=== PATIENT | female | born 1960 | race Caucasian/White ===

== ENCOUNTER 2025-01-19 00:54 | Emergency (ER) | payer MEDICARE, MEDICAID, SELFPAY ==
--- OUTSIDE RECORDS SUMMARY | 2012-07-22 12:00 | XMS_ITS | Encounter Summary ---
Author Organization [facility] Address [address], [address] [place] [address] Care Team Providers Care Card Brusher Name Role Phone Unavailable Primary Care Provider Unavailabl e Encounter Details Date Type Department Care Team (Late st Contact Info) Description 07/22/2012 11:00 AM EST Hospital Encounter [facility] Social History Tobacco Use Types Packs/Day Years Used Date Smoking Tobacco: Never Assessed Comments Unknown Sex and Gender Information Value Date Recorded Sex Assigned at Not on file Legal Sex Female 1:34 AM EST Gender Identity Not on file Sexual Orientation Not on file documented as of this encounter Plan of Treatment Not on file documented as of this encounter Visit Diagnoses Not on filedocumented in this encounter
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
[2025-01-19 00:58] VITALS: BP 169/77; PULSE 100; TEMP 36.6; O2SAT 98; BMI 25.0
--- OUTSIDE RECORDS SUMMARY | 2025-01-19 01:08 | XMS_ITS | Encounter Summary ---
Author Organization [facility] Address [address] [place] [address] Care Team Providers Care Power Wheelchair Mechanic Name Role Phone Yousif Pichardo Unavailable [phone] Malini Lemon NP Unavailable [phone] Mary Briseno PA-C Primary Care Provider [phone] Dolores Augustin MD Unavailable Ana Paula Jha APRN Unavailable [phone] Randall Stearns MD Unavailable Unavail able Cleopatra Maldonado RN Unavailable [phone] Veena Duron Unavailable Unavailable Kal Kaur MD Unavailable [phone] Source Comments In the event this information is protected by the Federal Confidentiality of Alcohol and Drug AbusePatient Records regulations: The Federal rules restrict any use of the information to criminally investigate or prosecute any alcohol or drug abuse patient.[facility] Encounter Details Date Type Department Care Team (Late st Contact Info) Description 06/24/2024 Patient Update Breast Center [address] [place] [id number] [place] [address] [place] [address] Social History Tobacco Use Types Packs/Day Years Used Date Smoking Tobacco: Every Day Cigarettes 1 25 Passive Smoke Exposure: Current Smokeless Tobacco: Never Alcohol Use Standard Drinks/Week Comments No 0 (1 standard drink = 0.6 oz pur e alcohol) PHQ-2 Answer Date Recorded PHQ-2 score 1 05/28/2024 Hunger Vital Sign Answer Date Recorded Within the past 12 months, y ou worried that your food would run out before you got the money to buy more. Never true 10/26/19 Within the past 12 months, t he [...] is lower risk 7 03/02/2024 Data from: https://www.neighborhoodatlas.medicine.[facility].edu/. Last address used for calculation spring03/02/2024 Comments No Sex and Gender Information Value Date Recorded Sex Assigned at Not on file Legal Sex Female 7:29 AM EST Gender Identity Not on file Sexual Orientation Not on file documented as of this encounter Functional Status * Are you deaf or do you have serious difficulty hearing? Answer Date of Assessment Author No 02/22/2022 12:57 PM Bonita Matthew RN * Are you blind or do you have serious difficulty seeing, even when wearing glasses? Answer Date of Assessment Author No 02/22/2022 12:57 PM Bonita Matthew RN * Do you have serious difficulty walking or climbing stairs? Answer Date of Assessment Author No 02/22/2022 12:57 PM Bonita Matthew RN * Do you have difficulty dressing [...] Bonita Durbin RN documented in this encounter Plan of Treatment Upcoming Encounters Date Type Department Care Team (Late st Contact Info) Description 01/12/2025 11:59 PM EDT Anesthesia Event [facility] Endoscopy [facility] [address] [place] [phone] [place] [address] 01/22/2025 3:40 PM EDT Office Visit Family Medicine [place] [address] [place] [address] Mary Briseno PA-C [address] [place] [address] 3 month follow up 01/26/2025 10:00 AM EDT Appointment [facility] Endoscopy [place] [address] [address] [place] [address] Perry Connell Jr., [address] [facility] [address] [place] [phone] dieabetic: EGD DIAGNOSTIC/COLONOSC OPY DIAGNOSTIC 02/01/2025 3:15 PM EDT Office Visit [facility] [place] [address] 3 month MAYANK/BRM with lab 02/01/2025 3:40 PM EDT Visit (SP) Office Hematology/Oncolog y [address] [place] [address] Kal Kaur MD [address] [facility] [place] [address] 3 month MAYANK/BRM with lab 02/02/2025 4:30 PM EDT Office Visit [facility] [address] [facility] [place] [address] Gopal Leija DPM [address] [facility] [place] [address] RFC and FU for Pain 03/22/2025 1:30 PM EDT Office Visit Endocrinology [address] [place] [address] Monae Delgado APRN.STEEL BOX TOE INSERTER [address] [facility] [place] [address] Return in about 3 months (around 02/24/2025). 08/11/2025 2:40 PM EST Office Visit Rheumatology [address] [place] [address] Vineet Peñaloza [place] [address] [place] [address] 8 month follow up 02/11/2026 10:00 AM EDT Office Visit Obstetrics/Gynecol ogy [address] [place] [address] [place] [address] [place] [address] new annual requested RS documented as of this encounter Visit Diagnoses Diagnosis Malignant neoplasm of central portion of left breast in female, estrogen receptor negative (HCC)- Primary Triple negative breast cancer (HCC) documented in this encounter Additional Health Concerns Infection Onset Date Last Indicated Resolved Time COVID-19 Rule-Out 07/16/2024 07/16/2024 07/16/2024 2:51 PM EST documented as of this encounter Care Teams Power Wheelchair Mechanic Relationship Specialty Start Date End Date Mary Briseno PA-C [address] [place] [address] PCP - General Internal Medicine 09/20/22 Yousif Pichardo [address] [place] [address] [place] [address] Gastroenterology 03/19/17 Malini Lemon, FEED MANAGEMENT ADVISOR [address] [place] [address] Referring 04/10/21 Dolores Augustin MD [address] [place] [address] Blast Furnace Checker Family Medicine 05/15/24 Ana Paula Jha APRN [address] [place] [address] Blast Furnace Checker Internal Medicine 05/15/24 Randall Stearns MD [address] [place] [address] Physician Hematology/Oncology 08/13/24 12/14/24 Cleopatra Maldonado, SULEIMAN [address] [place] [address] Specialty Pharmacist In Charge Owner Hematology/Oncology 08/13/24 Veena Duron LSW Heater Worker 08/19/24 Kal Kaur MD [address] [place] [address] Physician Hematology/Oncology 12/15/24 documented as of this encounter
--- OUTSIDE RECORDS SUMMARY | 2025-01-19 01:08 | XMS_ITS | Encounter Summary ---
Author Organization [facility] Address [address] [place] [address] Care Team Providers Care Accounting Clerks Supervisor Name Role Phone Chi Anna Yousif Dunn Unavailable [phone] Malini Lemon NP Unavailable [phone] Mary Briseno PA-C Primary Care Provider [phone] Dolores Augustin MD Unavailable Ana Paula Jha APRN Unavailable [phone] Randall Stearns MD Unavailable Unavail able Cleopatra Maldonado RN Unavailable [phone] Veena Duron Unavailable Unavailable Kal Kaur MD Unavailable [phone] Source Comments In the event this information is protected by the Federal Confidentiality of Alcohol and Drug AbusePatient Records regulations: The Federal rules restrict any use of the information to criminally investigate or prosecute any alcohol or drug abuse patient.[facility] Encounter Details Date Type Department Care Team (Late st Contact Info) Description 05/29/2024 Patient Msg Functional Medicine [address] [phone] Provider, Ccf consult to functional medicine Social History Tobacco Use Types Packs/Day Years [...] is lower risk 7 03/02/2024 Data from: https://www.neighborhoodatlas.[facility].edu/. Last address used for calculation [...] 02/22/2022 12:57 PM Bonita Matthew RN * Because of a physical, mental, [...] Description 01/12/2025 11:59 PM EDT Anesthesia Event [facility] Endoscopy [facility] [address] [place] [phone] [place] [address] 01/22/2025 3:40 PM EDT Office Visit Family Medicine [place] [address] [place] [address] Mary Briseno PA-C [address] [place] [address] 3 month follow up 01/26/2025 10:00 AM EDT Appointment [facility] Endoscopy [place] [address] [place] [phone] Perry Connell Jr., [address] [place] [phone] dieabetic: EGD DIAGNOSTIC/COLONOSC OPY DIAGNOSTIC 02/01/2025 3:15 PM EDT Office Visit [facility] [address] [place] [address] 3 month MAYANK/BRM with lab 02/01/2025 3:40 PM EDT Visit (SP) Office Hematology/Oncolog y [address] [place] [address] Kal Kaur MD [address] [place] [address] 3 month MAYANK/BRM with lab 02/02/2025 4:30 PM EDT Office Visit [facility] [address] [facility] [place] [address] Gopal Leija, DPM [address] [facility] [place] [address] RFC and FU for Pain 03/22/2025 1:30 PM EDT Office Visit Endocrinology [address] [facility] [place] [address] Monae Delgado APRN.INDUSTRIAL PSYCHOLOGY TEACHER [address] [facility] [place] [address] Return in about 3 months (around 02/24/2025). 08/11/2025 2:40 PM EST Office Visit Rheumatology [address] [place] [address] Vineet Peñaloza [place] [address] [facility] [place] [address] 8 month follow up 02/11/2026 10:00 AM EDT Office Visit Obstetrics/Gynecol ogy [address] [place] [address] [place] [address] [place] [address] new annual requested RS documented as of this encounter Visit Diagnoses Not on filedocumented in this encounter Additional Health Concerns Infection Onset Date Last Indicated Resolved Time COVID-19 Rule-Out 07/16/2024 07/16/2024 07/16/2024 2:51 PM EST documented as of this encounter Care Teams Accounting Clerks Supervisor Relationship Specialty Start Date End Date Mary Briseno PA-C [address] [facility] [place] [address] PCP - General Internal Medicine 09/20/22 Yousif Pichardo [address] [place] [address] [place] [address] Gastroenterology 03/19/17 Malini Lemon, BAKERY TEAM MEMBER [address] [place] [address] Referring 04/10/21 Dolores Augustin MD [address] [place] [address] Landing Support Specialist Family Medicine 05/15/24 Ana Paula Jha APRN [address] [place] [address] Landing Support Specialist Internal Medicine 05/15/24 Randall Stearns MD [address] [place] [address] Physician Hematology/Oncology 08/13/24 12/14/24 Cleopatra Maldonado, SULEIMAN [address] [facility] [address] Specialty Trend Investigator Hematology/Oncology 08/13/24 Veena Duron LSW Product Development Scientist 08/19/24 Kal Kaur MD [address] [facility] [place] [address] Physician Hematology/Oncology 12/15/24 documented as of this encounter
--- OUTSIDE RECORDS SUMMARY | 2025-01-19 01:08 | XMS_ITS | Encounter Summary ---
Author Organization [facility] Address [address] [place] [address] Care Team Providers Care Saw Tailer Name Role Phone Yousif Pichardo Unavailable [phone] Malini Lemon NP Unavailable [phone] Mary Briseno PA-C Primary Care Provider [phone] Dolores Augustin MD Unavailable Ana Paula Jha APRN Unavailable [phone] Randall Stearns MD Unavailable Unavail able Cleopatra Maldonado RN Unavailable [phone] Veena Duron Unavailable Unavailable Kal Kaur MD Unavailable [phone] Source Comments In the event this information is protected by the Federal Confidentiality of Alcohol and Drug AbusePatient Records regulations: The Federal rules restrict any use of the information to criminally investigate or prosecute any alcohol or drug abuse patient.[facility] Encounter Details Date Type Department Care Team (Late st Contact Info) Description 05/05/2024 Radiology [facility] Radiology Mammography [address] [place], [place] [id number] [facility] Social History Tobacco Use Types Packs/Day Years Used Date Smoking Tobacco: Every Day Cigarettes 25 Passive Smoke Exposure: Current Smokeless Tobacco: Never Alcohol Use Standard Drinks/Week Comments No 0 (1 standard drink = 0.6 oz pur e alcohol) PHQ-2 Answer Date Recorded PHQ-2 score 0 04/03/2024 Hunger Vital Sign Answer Date Recorded Within [...] is lower risk 7 03/02/2024 Data from: https://www.neighborhoodatlas.medicine.[facility].edu/. Last address used for calculation spring03/02/2024 [...] Description 01/12/2025 11:59 PM EDT Anesthesia Event [facility] Endoscopy [facility] [address] [place] [phone] [place] [address] 01/22/2025 3:40 PM EDT Office Visit Family Medicine [place] [address] [place] [address] Mary Briseno PA-C [address] [place] [address] 3 month follow up 01/26/2025 10:00 AM EDT Appointment [facility] Endoscopy [place] [address] [address] [place] [phone] Perry Connell Jr., [address] [place] [phone] dieabetic: EGD DIAGNOSTIC/COLONOSC OPY DIAGNOSTIC 02/01/2025 3:15 PM EDT Office Visit [facility] [address] [place] [address] 3 month MAYANK/BRM with lab 02/01/2025 3:40 PM EDT Visit (SP) Office Hematology/Oncolog y [address] [place] [address] Kal Kaur MD [address] [facility] [place] [address] 3 month MAYANK/BRM with lab 02/02/2025 4:30 PM EDT Office Visit [facility] [address] [place] [address] Gopal Leija, DPM [address] [place] [address] RFC and FU for Pain 03/22/2025 1:30 PM EDT Office Visit Endocrinology [address] [place] [address] Monae Delgado APRN.SKETCH ARTIST [address] [place] [address] Return in about 3 months (around 02/24/2025). 08/11/2025 2:40 PM EST Office Visit Rheumatology [address] [place] [address] Vineet Peñ[place] [address] [facility] [place] [address] 8 month follow up 02/11/2026 10:00 AM EDT Office Visit Obstetrics/Gynecol ogy [address] [place] [address] [place] [address] [place] [address] new annual requested RS documented as of this encounter Visit Diagnoses Not on filedocumented in this encounter Additional Health Concerns Infection Onset Date Last Indicated Resolved Time COVID-19 Rule-Out 07/16/2024 07/16/2024 07/16/2024 2:51 PM EST documented as of this encounter Care Teams Saw Tailer Relationship Specialty Start Date End Date Mary Briseno PA-C [address] [facility] [place] [address] PCP - General Internal Medicine 09/20/22 Yousif Pichardo [address] [place] [address] [place] [address] Gastroenterology 03/19/17 Malini Lemon, SURVEY RESEARCH MANAGER [address] [place] [address] Referring 04/10/21 Dolores Augustin MD [address] [place] [address] Production Support Developer Family Medicine 05/15/24 Ana Paula Jha APRN [address] [place] [address] Production Support Developer Internal Medicine 05/15/24 Randall Stearns MD [address] [place] [address] Physician Hematology/Oncology 08/13/24 12/14/24 Cleopatra Maldonado, SULEIMAN [address] [place] [address] Specialty Interior Design Consultant Hematology/Oncology 08/13/24 Veena Duron LSW Architectural Technician 08/19/24 Kal Kaur MD [address] [facility] [place] [address] Physician Hematology/Oncology 12/15/24 documented as of this encounter
--- OUTSIDE RECORDS SUMMARY | 2025-01-19 01:08 | XMS_ITS | Patient Health Record ---
Author Organization [facility] Address [address] [place] [address] Care Team Providers Care Joy Loader Name Role Phone XXXCVa bishop Primary Care Provider [phone] Eran Lopez [phone] Reason For Referral No Information Plan Of Treatment No Information Insurance Providers Payer Name Payer Address Payer Phone Subscriber Number Group Number Insured Name Patient Relationship to Insured Coverage Start Date Coverage End Date XXXMEDICARE NGS DO NOT USE! [address] [place] [phone] [id number] NONE Stvean Lilo Self - patient is the insured MEDICAID SEC TO [facility] [address] [place] [address] [id number] NONE Stevan Lilo Self - patient is the insured Medical (General) History Medical History History ICD Code breast Ca fibromyalgia RA DM PE Surgical History Surgery Date(Month/Year) hip 2008 mastectomy 2007
--- OUTSIDE RECORDS SUMMARY | 2025-01-19 01:08 | XMS_ITS | Encounter Summary ---
Author Organization [facility] Address [address] [place] [address] Care Team Providers Care Business Unit Manager Name Role Phone Chi Yousif Castillo Mona Unavailable [phone] Malini Lemon NP Unavailable [phone] Mary Briseno PA-C Primary Care Provider [phone] Dolores Augustin MD Unavailable Ana Paula Jha APRN Unavailable [phone] Randall Stearns MD Unavailable Unavail able Cleopatra Maldonado RN Unavailable [phone] Veena Duron Unavailable Unavailable Kal Kaur MD Unavailable [phone] Source Comments In the event this information is protected by the Federal Confidentiality of Alcohol and Drug AbusePatient Records regulations: The Federal rules restrict any use of the information to criminally investigate or prosecute any alcohol or drug abuse patient.[facility] Encounter Details Date Type Department Care Team (Late st Contact Info) Description 06/11/2024 Patient Msg Endocrinology [address] [place] [address] Provider, [facility] [employer] Social History Tobacco Use Types Packs/Day Years [...] is lower risk 7 03/02/2024 Data from: https://www.neighborhoodatlas.medicine.[facility].edu/. Last address used for calculation spring03/02/2024 [...] 11:59 PM EDT Anesthesia Event [facility] [place] [address] [place] [phone] Sisi Escobar APRN.[place] [phone] 01/22/2025 3:40 PM EDT Office Visit Family Medicine [place] [address] [place] [address] Mary Briseno PA-C [address] [place] [address] 3 month follow up 01/26/2025 10:00 AM EDT Appointment [facility] Endoscopy [place] [address] [address] [place] [address] Perry Connell Jr., [address] [place] [phone] dieabetic: EGD DIAGNOSTIC/COLONOSC OPY DIAGNOSTIC 02/01/2025 3:15 PM EDT Office Visit [facility] [place] [facility] [address] [place] [address] 3 month MAYANK/BRM with lab 02/01/2025 3:40 PM EDT Visit (SP) Office Hematology/Oncolog y [address] [place] [address] Kal Kaur MD [address] [place] [address] 3 month MAYANK/BRM with lab 02/02/2025 4:30 PM EDT Office Visit [facility] [address] [place] [address] Gopal Leija DPSalud [address] [place] [address] RFC and FU for Pain 03/22/2025 1:30 PM EDT Office Visit Endocrinology [address] [place] [address] Monae Delgado APRN.USER INTERFACE ENGINEER [address] [facility] [place] [address] Return in about 3 months (around 02/24/2025). 08/11/2025 2:40 PM EST Office Visit Rheumatology [address] [place] [address] Vineet Peñaloza [place] [address] [facility] [place] [address] 8 month follow up 02/11/2026 10:00 AM EDT Office Visit Obstetrics/Gynecol ogy [address] [place] [address] [place] [address] [place] [address] new annual requested RS documented as of this encounter Visit Diagnoses Not on filedocumented in this encounter Additional Health Concerns Infection Onset Date Last Indicated Resolved Time COVID-19 Rule-Out 07/16/2024 07/16/2024 07/16/2024 2:51 PM EST documented as of this encounter Care Teams Business Unit Manager Relationship Specialty Start Date End Date Mary Briseno PA-C [address] [facility] [place] [address] PCP - General Internal Medicine 09/20/22 Yousif Pichardo [address] [place] [address] [place] [address] Gastroenterology 03/19/17 Malini Lemon, STOCK CAR DRIVER [address] [place] [address] Referring 04/10/21 Dolores Augustin MD [address] [place] [address] Staff Field Engineer Family Medicine 05/15/24 Ana Paula Jha APRN [address] [place] [address] Staff Field Engineer Internal Medicine 05/15/24 Randall Stearns MD [address] [place] [address] Physician Hematology/Oncology 08/13/24 12/14/24 Cleopatra Maldonado, SULEIMAN [address] [facility] [place] [address] Specialty Floral Manager Hematology/Oncology 08/13/24 Veena Duron LSW Road Machinery Inspector 08/19/24 Kal Kaur MD [address] [facility] [place] [address] Physician Hematology/Oncology 12/15/24 documented as of this encounter
--- OUTSIDE RECORDS SUMMARY | 2025-01-19 01:08 | XMS_ITS ---
Author Organization [facility] Address [address] [place] [address] Care Team Providers Care Weight Guesser Name Role Phone Yousif Pichardo Unavailable [phone] Malini Lemon NP Unavailable [phone] Mary Briseno PA-C Primary Care Provider [phone] Dolores Augustin MD Unavailable Ana Paula Jha APRN Unavailable [phone] Cleopatra Maldonado RN Unavailable [phone] Veena Duron Unavailable Unavailable Kal Kaur MD Unavailable [phone] Chronic Disease Management Status:Deferred (Enrolling) Start date:03/04/2024 Related social drivers of health:Financial Resource Strain, Housing Stability, Utilities Continued Care and Services Coordination
--- OUTSIDE RECORDS SUMMARY | 2025-01-19 01:08 | XMS_ITS ---
Author Organization 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
--- OUTSIDE RECORDS SUMMARY | 2025-01-19 01:08 | XMS_ITS | Encounter Summary ---
Author Organization [facility] Address [address] [place] [address] Care Team Providers Care Cylinder Grinder Name Role Phone Yousif Pichardo Unavailable [phone] Mary Briseno PA-C Primary Care Provider [phone] Dolores Augustin MD Primary Care Provider [phone] Malini Lemon NP Unavailable Malini Lemon NP Primary Care Provider Mary Briseno PA-C Primary Care Provider Tamie Ignacio RN Unavailable Ariella Hernández RN Unavailable [phone] Dolores Augustin MD Primary Care Provider [phone] Mary Briseno PA-C Primary Care Provider [phone] [place] Crook RN Unavailable [phone] Dolores Augustin MD Unavailable Ana Paula Jha APRN Unavailable Randall Stearns MD Unavailable Unavail able Cleopatra Maldonado RN Unavailable [phone] Veena Duron Unavailable Unavailable Kal Kaur MD Unavailable [phone] Source Comments In the event this information is protected by the Federal Confidentiality of Alcohol and Drug AbusePatient Records regulations: The Federal rules restrict any use of the information to criminally investigate or prosecute any alcohol or drug abuse patient.[facility] Reason for Visit * Reason Comments Radiology XR Encounter Details Date Type Department Care Team (Late st Contact Info) Description 01/03/2021 Radiology Radiology [address] [place] [address] Yaquelin Monet RT(R) Radiology XR Social History Tobacco Use Types Packs/Day Years Used Date Smoking Tobacco: Every Day Cigarettes 0.5 25 Smokeless Tobacco: Never Alcohol Use Standard Drinks/Week Comments No 0 (1 standard drink = 0.6 oz pur e alcohol) PHQ-2 Answer Date Recorded PHQ-2 score 0 10/20/2020 Area Deprivation Index Answer Date Butch rded National Score (1-100), lower number is lower ri sk Not on file 05/14/2020 State Score (1-10), lower number is lower risk N ot on file 05/14/2020 Data from: https://www.neighborhoodatlas.medicine.[facility].edu/. Last address used for calculation Not on file 05/14/2020 Comments No Sex and Gender Information Value Date Recorded Sex Assigned at Not on file Legal Sex Female 7:29 AM EST Gender Identity Not on file Sexual Orientation Not on file COVID-19 Exposure Response Date Recorded In the last month, have you been in contact with someone who was confirmed or suspected to have Coronavirus / COVID-19? No / Unsure 01/05/2021 1:15 PM EDT documented as of this encounter Functional Status * Are you deaf or do you have serious difficulty hearing? Answer Date of Assessment Author No 10/16/2017 4:43 PM EDT Salud Caro RN * Are you blind or do you have serious difficulty seeing, even when wearing glasses? Answer Date of Assessment Author No 10/16/2017 4:43 PM EDT Salud Caro RN * Do you have serious difficulty walking or climbing stairs? Answer Date of Assessment Author No 10/16/2017 4:43 PM EDT Salud Caro RN * Do you have difficulty dressing or bathing? Answer Date of Assessment Author No 10/16/2017 4:43 PM EDT Salud Caro RN * Because of a physical, mental, or emotional condition, do you have difficulty doing errands alone such as visiting a doctor's office or shopping? Answer Date of Assessment Author No 10/16/2017 4:43 PM EDT Salud Caro RN documented as of this encounter Mental Status * Because of a physical, mental, or emotional condition, do you have serious difficulty concentrating, remembering, or making decisions? Answer Entry Date Author No 10/16/2017 4:43 PM EDT Salud Caro RN documented in this encounter Progress Notes * Yaquelin Monet RT(R) - 01/03/2021 4:30 PM EDT Radiology Service Progress Note PATIENT NAME: Lilo Calles DATE OF SERVICE: January 03, 2021 TIME: 4:30 PM PATIENT IDENTITY VERIFICATION COMPLETED USING TWO (2) IDENTIFIERS: Name and Date of confirmedby patient verbally. FALL SCREENING: Has the patient had 2 falls in the last year or 1 fall with injury or currently using an Ambulatory Assistive Device (Walker, Cane, Wheelchair, Crutches, etc.)? No PATIENT GENDER DATA: Female. status: : No status: NO. PATIENT RELEVANT IMPLANT DATA REVIEWED: Not Applicable RADIOLOGY DEPARTMENT: General X-ray: Exam(s) Completed: Chest X-Ray PERIPHERAL IV DATA: Not applicable SIGNED BY: RT Vincent(R) January 03, 2021 4:30 PM documented in this encounter Plan of Treatment Upcoming Encounters Date Type Department Care Team (Late st Contact Info) Description 01/12/2025 11:59 PM EDT Anesthesia Event [place] [address] [phone] Sisi Escobar APRN.[address] [address] 01/22/2025 3:40 PM EDT Office Visit Family Medicine [place] [address] [facility] [place] [address] Mary Briseno PA-C [address] [facility] [place] [place] [address] 3 month follow up 01/26/2025 10:00 AM EDT Appointment [facility] [place] [address] [place] [address] Perry Connell Jr., [address] [facility] [address] [place] [phone] dieabetic: EGD DIAGNOSTIC/COLONOSC OPY DIAGNOSTIC 02/01/2025 3:15 PM EDT Office Visit [facility] [address] [place] [address] 3 month MAYANK/BRM with lab 02/01/2025 3:40 PM EDT Visit (SP) Office Hematology/Oncolog y [address] [place] [address] Kal Kaur MD [address] [place] [address] 3 month MAYANK/BRM with lab 02/02/2025 4:30 PM EDT Office Visit [facility] [address] [facility] [place] [address] Gopal Leija, GERBER [address] [facility] [place] [address] RFC and FU for Pain 03/22/2025 1:30 PM EDT Office Visit Endocrinology [address] [facility] [place] [address] Monae Delgado, SANDEEP.LAWYER PROBATE [address] [place] [place] [address] Return in about 3 months (around 02/24/2025). 08/11/2025 2:40 PM EST Office Visit Rheumatology [address] [place] [address] Vineet Peñaloza [place] [address] [facility] [place] [address] 8 month follow up 02/11/2026 10:00 AM EDT Office Visit Obstetrics/Gynecol ogy [address] [place] [address] [place] [address] [place] [address] new annual requested RS documented as of this encounter Visit Diagnoses Not on filedocumented in this encounter Additional Health Concerns Infection Onset Date Last Indicated Resolved Time COVID-19 Rule-Out 06/29/2021 06/29/2021 06/29/2021 4:04 AM EST COVID-19 Rule-Out 02/19/2022 02/19/2022 02/20/2022 12:00 AM EDT COVID-19 Rule-Out 09/20/2022 09/20/2022 09/20/2022 9:14 PM EDT COVID-19 Rule-Out 07/16/2024 07/16/2024 07/16/2024 2:51 PM EST documented as of this encounter Care Teams Cylinder Grinder Relationship Specialty Start Date End Date Mary Briseno PA-C [address] [place] [address] PCP - General Family Medicine 09/12/20 01/22/21 Dolores Augustin MD [address] [facility] [place], [place] [phone] PCP - General Family Medicine 01/23/21 04/09/[address] SUPERVISOR [address] [place] [address] PCP - General 04/10/21 06/28/21 Mary Briseno PA-C [address] [facility] [place] [address] PCP - General Internal Medicine 06/29/21 04/08/22 Dolores Augustin MD [address] [facility] [place] [address] PCP - General Family Medicine 04/09/22 09/19/22 Mary Briseno PA-C [address] [facility] [place] [address] PCP - General Internal Medicine 09/20/22 Yousif Pichardo [address] [place] [address] Gastroenterology 03/19/[address] SUPERVISOR [address] [place] [phone] Referring 04/10/21 Tamie Ignacio, SULEIMAN [address] [place] [address] Primary Care Livestock Nutritionist 02/23/22 03/24/22 Ariella Hernández, SULEIMAN [address] [place] [address] Head Miller Primary Care 03/26/2211/11 Shirley Crook, SULEIMAN [address] [place] [address] Head Miller 11/12/2201/09 Dolores Augustin MD [address] [place] [address] Coil Binder Family Medicine 05/15/24 Ana Paula Jha APRN [address] [facility] [place] [phone] Coil Binder Internal Medicine 05/15/24 [place] [address] [place] [address] Physician Hematology/Oncology 08/13/24 12/14/24 Cleopatra Maldonado, SULEIMAN [address] [facility] [address] [place] [address] Specialty Printed Circuit Boards Router Hematology/Oncology 08/13/24 Veena Duron LSW Global Marketing Specialist 08/19/24 Kal Kaur MD [address] [address] [place] [address] Physician Hematology/Oncology 12/15/24 documented as of this encounter
--- OUTSIDE RECORDS SUMMARY | 2025-01-19 01:08 | XMS_ITS | Encounter Summary ---
Author Organization [facility] Address [address] [place] [address] Care Team Providers Care Clinical Nurse Reviewer Name Role Phone Chi Yousif Castillo Mona Unavailable [phone] Malini Lemon NP Unavailable [phone] Mary Briseno PA-C Primary Care Provider [phone] Dolores Augustin MD Unavailable Ana Paula Jha APRN Unavailable + [phone] Randall Stearns MD Unavailable Unavail able Cleopatra Maldonado RN Unavailable [phone] Veena Duron Unavailable Unavailable Kal Kaur MD Unavailable [phone] Source Comments In the event this information is protected by the Federal Confidentiality of Alcohol and Drug AbusePatient Records regulations: The Federal rules restrict any use of the information to criminally investigate or prosecute any alcohol or drug abuse patient.[facility] Encounter Details Date Type Department Care Team (Late st Contact Info) Description 08/10/2024 Patient Msg Pulmonary Medicine [address] [phone] Darleen Godinez HUC Consult to Smoking Cessation Social History Tobacco Use Types Packs/Day Years [...] is lower risk 7 03/02/2024 Data from: https://www.neighborhoodatlas.medicine.[facility].edu/. Last address used for calculation spring03/02/2024 Comments [...] of Assessment Author No 02/22/2022 12:57 PM DOLOREST Bonita Durbin RN * Are you blind [...] Description 01/12/2025 11:59 PM EDT Anesthesia Event [facility] [place] [address] [address] [place] [phone] [place] [address] 01/22/2025 3:40 PM EDT Office Visit Family Medicine [place] [address] [facility] [facility] [place] [address] Mary Briseno PA-C [address]00 [place] [address] 3 month follow up 01/26/2025 10:00 AM EDT Appointment [facility] [place] [address] [address] [place] [phone] Perry Connell Jr., [facility] [address] [place] [phone] dieabetic: EGD DIAGNOSTIC/COLONOSC OPY DIAGNOSTIC 02/01/2025 3:15 PM EDT Office Visit [facility] [address] [facility] [place] [place] [address] 3 month MAYANK/BRM with lab 02/01/2025 3:40 PM EDT Visit (SP) Office Hematology/Oncolog y [address] [place] [address] Kal Kaur MD [address] [place] [address] 3 month MAYANK/BRM with lab 02/02/2025 4:30 PM EDT Office Visit [facility] [address] [place] [address] Gopal Leija, DPSalud [address] [place] [address] RFC and FU for Pain 03/22/2025 1:30 PM EDT Office Visit Endocrinology 57[address] [facility] [place] [address] Monae Delgado APRN.CHARGE MASTER COORDINATOR [address] [place] [address] Return in about 3 months (around 02/24/2025). 08/11/2025 2:40 PM EST Office Visit Rheumatology [address] [place] [address] Vineet Peñ[place] [address] [facility] [place] [address] 8 month follow up 02/11/2026 10:00 AM EDT Office Visit Obstetrics/Gynecol ogy [address] [place] [address] [place] [address] [place] [address] new annual requested RS documented as of this encounter Visit Diagnoses Not on filedocumented in this encounter Care Teams Clinical Nurse Reviewer Relationship Specialty Start Date End Date Mary Briseno PA-C [address] [facility] [place] [address] PCP - General Internal Medicine 09/20/22 Yousif Pichardo [address] [facility] [address] [place] [address] Gastroenterology 03/19/17 Malini Lemon, CORRECTIONS IDENTIFICATION TECHNICIAN [address] [place] [phone] Referring 04/10/21 Dolores Augustin MD [address] [place] [address] Senior Investigator Family Medicine 05/15/24 Ana Paula Jha APRN [address] [place] [address] Senior Investigator Internal Medicine 05/15/24 Randall Stearns MD [address] [place] [address] Physician Hematology/Oncology 08/13/24 12/14/24 Cleopatra Maldonado, SULEIMAN [address] [facility] [address] Specialty Virtual Classroom Manager Hematology/Oncology 08/13/24 Veena Duron, [place]AN[place] MILL OPERATOR Valuation Consultant 08/19/24 Kal Kaur MD [address] [facility] [place] [address] Physician Hematology/Oncology 12/15/24 documented as of this encounter
--- OUTSIDE RECORDS SUMMARY | 2025-01-19 01:08 | XMS_ITS | Encounter Summary ---
Author Organization [facility] Address [address] [place] [address] Care Team Providers Care City Distribution Clerk Name Role Phone Chi Mosleymejia Yousif Dunn Unavailable [phone] Malini Lemon NP Unavailable [phone] Mary Briseno PA-C Primary Care Provider [phone] Dolores Augustin MD Unavailable Ana Paula Jha APRN Unavailable [phone] Randall Stearns MD Unavailable Unavail able Cleopatra Maldonado RN Unavailable [phone] Veena Duron Unavailable Unavailable Kal Kaur MD Unavailable [phone] Source Comments In the event this information is protected by the Federal Confidentiality of Alcohol and Drug AbusePatient Records regulations: The Federal rules restrict any use of the information to criminally investigate or prosecute any alcohol or drug abuse patient.[facility] Encounter Details Date Type Department Care Team (Late st Contact Info) Description 06/22/2024 Patient Msg Genetic [employer] [address] [place] [address] Pepe Sanford, [place] [address] [place] [address] Genetic Test Result Social History Tobacco Use Types Packs/Day Years [...] is lower risk 7 03/02/2024 Data from: https://www.neighborhoodatlas.medicine.[facility].edu/. Last address used for calculation spring03/02/2024 [...] Description 01/12/2025 11:59 PM EDT Anesthesia Event [facility] Endoscopy [facility] [address] [place] [phone] [place] [address] 01/22/2025 3:40 PM EDT Office Visit Family Medicine [place] [address] [place] [address] Mary Briseno PA-C [address] [place] [address] 3 month follow up 01/26/2025 10:00 AM EDT Appointment [facility] Endoscopy [place] [address] [address] [place] [phone] Perry Connell Jr., [address] [place] [phone] dieabetic: EGD DIAGNOSTIC/COLONOSC OPY DIAGNOSTIC 02/01/2025 3:15 PM EDT Office Visit [facility] [address] [place], [place] [phone] 3 month MAYANK/BRM with lab 02/01/2025 3:40 PM EDT Visit (SP) Office Hematology/Oncolog y [address] [place] [address] Kal Kaur MD [address] [facility] [place] [address] 3 month MAYANK/BRM with lab 02/02/2025 4:30 PM EDT Office Visit [facility] [address] [place] [address] Gopal Leija DPM [address] [place] [address] RFC and FU for Pain 03/22/2025 1:30 PM EDT Office Visit Endocrinology 57[address] [facility] [address] Monae Delgado APRN.OUTREACH DIRECTOR [address] [place] [address] Return in about 3 months (around 02/24/2025). 08/11/2025 2:40 PM EST Office Visit Rheumatology [address] [place] [address] Vineet Peñaloza [place] [address] [facility] [place] [address] 8 month follow up 02/11/2026 10:00 AM EDT Office Visit Obstetrics/Gynecol ogy [address] [place] [address] [place] [address] [place] [address] new annual requested RS documented as of this encounter Visit Diagnoses Not on filedocumented in this encounter Additional Health Concerns Infection Onset Date Last Indicated Resolved Time COVID-19 Rule-Out 07/16/2024 07/16/2024 07/16/2024 2:51 PM EST documented as of this encounter Care Teams City Distribution Clerk Relationship Specialty Start Date End Date Mary Briseno PA-C [address] [place] [address] [place] [address] PCP - General Internal Medicine 09/20/22 Yousif Pichardo [address] [place] [address] [place] [address] Gastroenterology 03/19/17 Malini Lemon, APPELLATE LAW CLERK [address] [place] [address] Referring 04/10/21 Dolores Augustin MD [address] [place] [address] Serology Teacher Family [facility] 05/15/24 Ana Paula Jha APRN [address] [place] [address] Serology Teacher Internal Medicine 05/15/24 Randall Stearns MD [address] [place] [address] Physician Hematology/Oncology 08/13/24 12/14/24 Cleopatra Maldonado, SULEIMAN [address] [facility] [place] [address] Specialty Inspector Motor Vehicles Hematology/Oncology 08/13/24 Veena Duron LSW Electric Motor Winders Assembler 08/19/24 Kal Kaur MD [address] [facility] [place] [address] Physician Hematology/Oncology 12/15/24 documented as of this encounter
--- OUTSIDE RECORDS SUMMARY | 2025-01-19 01:08 | XMS_ITS | Encounter Summary ---
Author Organization [facility] Address [address] [place] [address] Care Team Providers Care Deputy Commissioner Name Role Phone Chi Darylkendymejia Yousif Dunn Unavailable [phone] Malini Lemon NP Unavailable [phone] Mary Briseno PA-C Primary Care Provider [phone] Dolores Augustin MD Unavailable Ana Paula Jha APRN Unavailable + [phone] Randall Stearns MD Unavailable Unavail able Cleopatra Maldonado RN Unavailable [phone] Veena Duron Unavailable Unavailable Kal Kaur MD Unavailable [phone] Source Comments In the event this information is protected by the Federal Confidentiality of Alcohol and Drug AbusePatient Records regulations: The Federal rules restrict any use of the information to criminally investigate or prosecute any alcohol or drug abuse patient.[facility] Encounter Details Date Type Department Care Team (Late st Contact Info) Description 08/06/2024 Patient Msg Breast Center [address] [facility] [phone] Provider, Ccf Please schedule CONSULT TO SMOKING CESSATION order Social History Tobacco Use Types Packs/Day Years [...] is lower risk 7 03/02/2024 Data from: https://www.neighborhoodatlas.medicine.[facility].edu/. Last address used for calculation [...] Description 01/12/2025 11:59 PM EDT Anesthesia Event [facility] Endoscopy [place] [address] [address] [place] [phone] [place] [address] 01/22/2025 3:40 PM EDT Office Visit Family Medicine [place] [address] [place] [address] Mary Briseno PA-C [address] [place], [place] [phone] 3 month follow up 01/26/2025 10:00 AM EDT Appointment [facility] Endoscopy [place] [address] [address] [place] [phone] Perry Connell Jr., [place] [address] [address] [place] [phone] dieabetic: EGD DIAGNOSTIC/COLONOSC OPY DIAGNOSTIC 02/01/2025 3:15 PM EDT Office Visit [facility] [address] [place] [address] 3 month MAYANK/BRM with lab 02/01/2025 3:40 PM EDT Visit (SP) Office Hematology/Oncolog y [address] [place] [address] Kal Kaur MD [address] [place] [address] [place] [address] 3 month MAYANK/BRM with lab 02/02/2025 4:30 PM EDT Office Visit [facility] [address] [place] [address] Gopal Leija, DPSalud [address] [place] [address] RFC and FU for Pain 03/22/2025 1:30 PM EDT Office Visit Endocrinology [address] [place] [address] Monae Delgado APRN.SENIOR COLDFUSION DEVELOPER [address] [place] [address] Return in about 3 months (around 02/24/2025). 08/11/2025 2:40 PM EST Office Visit Rheumatology [address] [place] [address] Vineet Peñaloza [place] [address] [facility] [place] [address] 8 month follow up 02/11/2026 10:00 AM EDT Office Visit Obstetrics/Gynecol ogy [address] [place] [address] [place] [address] [place] [address] new annual requested RS documented as of this encounter Visit Diagnoses Not on filedocumented in this encounter Care Teams Deputy Commissioner Relationship Specialty Start Date End Date Mary Briseno PA-C [address] [facility] [place] [address] PCP - General Internal Medicine 09/20/22 Yousif Pichardo [address] [facility] [address] [place] [address] Gastroenterology 03/19/17 Malini Lemon, MEDICAL OFFICER [address] [place] [phone] Referring 04/10/21 Dolores Augustin MD [address] [place] [address] Bowling Ball Patcher Family Medicine 05/15/24 Ana Paula Jha APRN [address] [place] [address] Bowling Ball Patcher Internal Medicine 05/15/24 Randall Stearns MD [address] [place] [address] Physician Hematology/Oncology 08/13/24 12/14/24 Cleopatra Maldonado, SULEIMAN [address] [place] [address] Specialty Credit Negotiator Hematology/Oncology 08/13/24 Veena Duron LSW Care Transport Nurse 08/19/24 Kal Kaur MD [address] [place] [address] Physician Hematology/Oncology 12/15/24 documented as of this encounter
--- OUTSIDE RECORDS SUMMARY | 2025-01-19 01:08 | XMS_ITS | Encounter Summary ---
Author Organization [facility] Address [address] [place] [address] Care Team Providers Care Rental Clerk Tool And Equipment Name Role Phone Yousif Pichardo Unavailable [phone] Malini Lemon NP Unavailable [phone] Mary Briseno PA-C Primary Care Provider [phone] Dolores Augustin MD Unavailable Ana Paula Jha APRN Unavailable [phone] Randall Stearns MD Unavailable Unavail able Cleopatra Maldonado RN Unavailable [phone] Veena Duron Unavailable Unavailable Kal Kaur MD Unavailable [phone] Source Comments In the event this information is protected by the Federal Confidentiality of Alcohol and Drug AbusePatient Records regulations: The Federal rules restrict any use of the information to criminally investigate or prosecute any alcohol or drug abuse patient.[facility] Reason for Referral * Diagnostic Procedure Only (Routine) - Closed Specialty Diagnoses / Procedures Referred By Contac t Referred To Contact [facility] Diagnoses Abnormal MRI, breast Procedures US BIOPSY BREAST LEFT BX BREAST W/DEVICE 1ST LESION ULTRASOUND GUID Sia Fine MD [address] [place] [address] Phone: tel: fax: [facility] [address] [place] [address] Referral ID Status Reason Start Date Expiration Date V isits Requested Visits Authorized [id number] Closed Auto-Generate d Referral 05/05/2024 06/04/2025 1 1 Encounter Details Date Type Department Care Team (Late st Contact Info) Description 05/05/2024 Radiology [facility] Radiology Mammography [address] [place] [address] Sia Fine MD [address] [address] Social History Tobacco Use Types Packs/Day Years [...] is lower risk 7 03/02/2024 Data from: https://www.neighborhoodatlas.medicine.[facility].edu/. Last address used for calculation spring03/02/2024 [...] Description 01/12/2025 11:59 PM EDT Anesthesia Event [facility] [place] [address] [place] [address] Sisi Escobar APRN.[address] [address] 01/22/2025 3:40 PM EDT Office Visit Family Medicine [place] [address] [place] [address] Mary Briseno PA-C [address] [place] [address] 3 month follow up 01/26/2025 10:00 AM EDT Appointment [facility] [place] [address] [facility] [place] [address] Perry Connell Jr., [address] [facility] [place] [address] dieabetic: EGD DIAGNOSTIC/COLONOSC OPY DIAGNOSTIC 02/01/2025 3:15 PM EDT Office Visit [facility] [address] [place] [address] 3 month MAYANK/BRM with lab 02/01/2025 3:40 PM EDT Visit (SP) Office Hematology/Oncolog y [address] [place] [address] Kal Kaur MD [address] [place] [address] 3 month MAYANK/BRM with lab 02/02/2025 4:30 PM EDT Office Visit [facility] [address] [place] [address] Gopal Leija, DPM [address] [place] [address] RFC and FU for Pain 03/22/2025 1:30 PM EDT Office Visit Endocrinology [address] [place] [address] Monae Delgado, CONVENTION MANAGER.WELLFIELD TECHNICIAN [address] [place] [address] Return in about 3 months (around 02/24/2025). 08/11/2025 2:40 PM EST Office Visit Rheumatology [address] [place] [address] Vineet Peñaloza [place] [address] [place] [address] 8 month follow up 02/11/2026 10:00 AM EDT Office Visit Obstetrics/Gynecol ogy [address] [place] [address] [place] [address] [place] [address] new annual requested RS documented as of this encounter Results * US BIOPSY BREAST LEFT (05/20/2024 1:42 PM EST) Anatomical Region Laterality Modality Breast Left Other 05/20/2024 1:42 PM EST Addenda Addendum by Provider, [facility] [place] on 05/26/2024 4:53 PM EST * * *Final Report* * * * * * SEE BOTTOM OF REPORT FOR ADDENDED TEXT * * * DATE OF EXAM: May 20 2024 1:42PM [facility] 0597 - [facility] US BIOPSY BREAST LT / PROCEDURE REASON: Abnormal MRI, breast * * * * Physician Interpretation * * * * [facility] [address] [place] [id number] - - - - - - - - - - ADDENDED REPORT - - - - - - - - - - 05/26/2024 at 16:48:27 Addendum: The final pathology results of the patient's core biopsy demonstrate the following: Site 1 - (left breast) Left Breast, 12:00, 3 Cm From Nipple, Guided Core Biopsy With Acute Clip Placement: - Invasive Ductal Carcinoma With Focal Mucinous Features, Provisional Histologic Grade 2, Measuring 4 Mm In Greatest Dimension. - See Comment. Electronically Signed By Ariella Swift MD On 05/22/2024 at 9:[address] Mo Review This Case With Concurrence. This is concordant with the imaging findings. RECOMMENDATION Site 1: Surgical consultation A breast imaging nurse navigator contacted the patient with the results and recommendations. Surgical consultation is recommended. The patient was assisted in scheduling surgical consultation. Interpreting Radiologist: Yun Isaac M.D. Electronically signed on: 05/26/2024 - - - - - - - - - - ORIGINAL REPORT - - - - - - - - - - #[id number] - [facility] US BIOPSY BREAST LT #[id number] - MRI BREAST CLIP PLACEMENT LT -NB #[id number] - [facility] DIAGNOSTIC LT HISTORY: 63 year old patient presents for ultrasound guided core biopsy of the following: Site 1: Mass located in the left breast at 12 o'clock, 3 cm from the nipple PATIENT CONSENT: A time out was performed immediately prior to procedure start with the radiology team, correctly identifying the patient name, date of , procedure, anatomy (including marking of site and side), patient position, relevant diagnostic and radiology test results, safety precautions, and procedure-specific equipment needs. The procedure, along with the risks (including, but not limited to, infection and bleeding), benefits, and alternatives, was explained to the patient by the performing physician. The patient agreed to undergo the procedure. Medications and allergies were also reviewed. The radiologist and technologist were present throughout the entire procedure. Correlation is made to exams dated: 04/07/2024 (other), 04/23/2024 (mammogram), 04/23/2024 (ultrasound), 04/29/2024 (MRI) and 05/05/2024 (ultrasound). Site 1: Mass in the left breast at 12 o'clock, 3 cm from the nipple Audible Time Out Time: 1312 Procedure Start Time: 1312 Procedure Stop Time: 1326 An ultrasound-guided biopsy using real-time ultrasound was performed for the concerning mass located in the left breast at 12 o'clock, 3 cm from the nipple. This was described on the previous ultrasound report. The skin was prepped in the usual manner. Local anesthetic was administered. A skin lisa was made. The abnormality was approached from the medial aspect. A 14 gauge biopsy needle was placed adjacent to the abnormality under ultrasound guidance. Once the needle was documented to be in the correct location, 4 samples were obtained using a spring-loaded biopsy device. A Q biopsy marker was then placed under sonographic guidance. A skin closure strip and a sterile dressing were applied to the access site. The specimen was sent to the laboratory for pathological analysis. The specimen was sent to the laboratory for pathological analysis. Post-procedure mammogram: The Q biopsy marker is in appropriate position at the mass. Post-procedure mammogram density: The breasts are heterogeneously dense, which may obscure small masses. IMPRESSION: ULTRASOUND GUIDED BIOPSY Site 1: Ultrasound-guided biopsy of the mass located in the left breast at 12 o'clock, 3 cm from the nipple with placement of a Q biopsy marker. Procedure was successful. Waiting for pathology result. An amendment will be issued to this report when pathology results become available. The Q biopsy marker is in appropriate position at the mass. There were no biopsy complications observed. HISTORY: 63 year old patient presents for breast MRI in order to evaluate clip position at 12 o'clock, 3 cm from the nipple in the left breast. Correlation is made to exams dated: 04/07/2024 (other), 04/23/2024 (mammogram), 04/23/2024 (ultrasound), 04/29/2024 (MRI) and 05/05/2024 (ultrasound). TECHNIQUE: The patient was studied using a dedicated breast biopsy coil in the Siemens 1.5 Ani scanner. Initial coronal T1 localizer was obtained followed by axial T1-weighted GRE imaging without contrast. Susceptibility artifact from the Q biopsy marker is present at 12 o'clock, 3 cm from the nipple in the left breast. The artifact corresponds to the site of the enhancing finding described on the recent breast MRI dated 04/29/2024. IMPRESSION: Site 1: Biopsy marker artifact from the biopsy at 12 o'clock, 3 cm from the nipple in the left breast corresponds to the site of the enhancing finding described on the recent breast MRI. Please refer to the separately dictated ultrasound biopsy report dated 05/20/2024 for further details and final pathology. Interpreting Radiologist: Yun Isaac M.D. Electronically signed on: 05/20/2024 Coal Gasification Technician: CHIQUIS Transcribe Date/Time: May 20 2024 12:46P Dictated by : YUN ISAAC MD This examination was interpreted and the report reviewed and electronically signed by: YUN ISAAC MD on May 20 2024 5:27PM EST This document has been addended by: YUN ISAAC MD on May 26 2024 4:48PM EST Sia Fine MD [facility] Edited Result - Final documented in this encounter Visit Diagnoses Diagnosis Abnormal MRI, breast- Primary Other (abnormal) findings on radiological examination of breast Abnormal MRI, breast Other (abnormal) findings on radiological examination of breast documented in this encounter Additional Health Concerns Infection Onset Date Last Indicated Resolved Time COVID-19 Rule-Out 07/16/2024 07/16/2024 07/16/2024 2:51 PM EST documented as of this encounter Care Teams Rental Clerk Tool And Equipment Relationship Specialty Start Date End Date Mary Briseno PA-C [address] [place] [address] PCP - General Internal Medicine 09/20/22 Yousif Pichardo [address] [address] [place] [address] Gastroenterology 03/19/17 Malini Lemon LION TAMER [address] [place] [address] Referring 04/10/21 Dolores Augustin MD [address] [place] [address] Medical Receptionist Family Medicine 05/15/24 Ana Paula Jha APRN [address] [place] [address] Medical Receptionist Internal Medicine 05/15/24 Randall Stearns MD [address] [place] [address] Physician Hematology/Oncology 08/13/24 12/14/24 Cleopatra Maldonado, SULEIMAN [address] [place] [address] Specialty International Trade Manager Hematology/Oncology 08/13/24 Veena Duron LSW Hospitality House Supervisor 08/19/24 Kal Kaur MD [address] [place] [address] Physician Hematology/Oncology 12/15/24 documented as of this encounter
--- OUTSIDE RECORDS SUMMARY | 2025-01-19 01:09 | XMS_ITS | Encounter Summary ---
Author Organization [facility] Address [address] [place] [address] Care Team Providers Care Dairy Hand Name Role Phone Unavailable Primary Care Provider Unavailabl e Encounter Details Date Type Department Care Team (Late st Contact Info) Description 09/15/2024 Abstract [facility] [address] [place] [address] Thomas Gould, DPM FACFAS [address] [place] [address] Social History Tobacco Use Types Packs/Day Years Used Date Smoking Tobacco: Never Assessed Comments Unknown Sex and Gender Information Value Date Recorded Sex Assigned at Not on file Legal Sex Female 7:21 PM EDT Gender Identity Not on file Sexual Orientation Not on file documented as of this encounter Plan of Treatment Not on file documented as of this encounter Visit Diagnoses Not on filedocumented in this encounter
--- OUTSIDE RECORDS SUMMARY | 2025-01-19 01:09 | XMS_ITS | Encounter Summary ---
Author Organization [facility] Address [address], [address] [place] [address] Care Team Providers Care Square Shear Operator Name Role Phone Cleopatra Pozo MD Primary Care Provider [phone] Encounter Details Date Type Department Care Team (Late st Contact Info) Description 10/06/2014 FollowUp Telephone Encounter [facility] [address] [place] [address] Nafisa Moore, RN Social History Tobacco Use Types Packs/Day Years [...] on filedocumented in this encounter Care Teams Square Shear Operator Relationship Specialty Start Date End Date Cleopatra Pozo MD PCP - General 03/07/15 documented as of this encounter
--- OUTSIDE RECORDS SUMMARY | 2025-01-19 01:09 | XMS_ITS | Clinical Summary ---
Author Organization [facility] Address [address] [place] [address] Care Team Providers Care Manager Urology Name Role Phone Unavailable Primary Care Provider Unavailabl e Social History Tobacco Use Types Packs/Day Years Used Date Smoking Tobacco: Never Assessed Comments Unknown Sex and Gender Information Value Date Recorded Sex Assigned at Not on file Legal Sex Female 7:21 PM EDT Gender Identity Not on file Sexual Orientation Not on file Plan of Treatment Not on file
--- OUTSIDE RECORDS SUMMARY | 2025-01-19 01:09 | XMS_ITS | Encounter Summary ---
Author Organization [facility] Address [address] [place] [address] Care Team Providers Care Small Animal Caretaker Name Role Phone Pcp, No Primary Care Provider Unavailabl e Veronica Jo MD Primary Care Provider [phone] Sharmin Corado MD Primary Care Provider [phone] Pcp, No Primary Care Provider Unavailabl e Cleopatra Pozo MD Primary Care Provider [phone] Pcp, No Primary Care Provider Unavailabl e Pcp, No Primary Care Provider Unavailabl e Yousif Pichardo Unavailable [phone] Pcp, No Primary Care Provider Unavailabl e Joseph Hunt MD Primary Care Provider [phone] Joseph Hunt MD Primary Care Provider [phone] Mary Briseno PA-C Primary Care Provider + Dolores Augustin MD Primary Care Provider + Malini Lemon PLANER OPERATOR Unavailable [phone] Malini Lemon NP Primary Care Provider [phone] Mary Briseno PA-C Primary Care Provider [phone] Tamie Ignacio RN Unavailable [phone] Ariella Hernández RN Unavailable [phone] Dolores Augustin MD Primary Care Provider + Mary Briseno PA-C Primary Care Provider + Shirley Crook RN Unavailable [phone] Dolores Augustin MD Unavailable Ana Paula Jha APRN Unavailable [phone] Randall Stearns MD Unavailable Unavail able Cleopatra Maldonado RN Unavailable [phone] Veena Duron Unavailable Unavailable Kal Kaur MD Unavailable [phone] Source Comments In the event this information is protected by the Federal Confidentiality of Alcohol and Drug AbusePatient Records regulations: The Federal rules restrict any use of the information to criminally investigate or prosecute any alcohol or drug abuse patient.[facility] Encounter Details Date Type Department Care Team (Late st Contact Info) Description 03/11/2014 Abstract Urology [address] [place] [address] Kamryn Bryson APRN.MANAGER VALIDATION [address] [place] [address] Social History Tobacco Use Types Packs/Day Years Used Date Smoking Tobacco: Every Day Cigarettes 0.5 25 Smokeless Tobacco: Never Comments:smokes spirit all n atural cigarettes Alcohol Use Standard Drinks/Week Comments No 0 (1 standard drink = 0.6 oz pur e alcohol) Comments No Sex and Gender Information Value Date Recorded Sex Assigned at Not on file Legal Sex Female 7:29 AM EST Gender Identity Not on file Sexual Orientation Not on file documented as of this encounter Functional Status * Are you deaf or do you have serious difficulty hearing? Answer Date of Assessment Author No 02/15/2014 7:00 AM EDT Ynes Suárez Ma * Are you blind or do you have serious difficulty seeing, even when wearing glasses? Answer Date of Assessment Author No 02/15/2014 7:00 AM EDT Jose Armando Hernández Ynes * Do you have serious difficulty walking or climbing stairs? Answer Date of Assessment Author No 02/15/2014 7:00 AM EDT Suárez Betty Ynes * Do you have difficulty dressing or bathing? Answer Date of Assessment Author No 02/15/2014 7:00 AM EDT Suárez Kike Hernándezo * Because of a physical, mental, or emotional condition, do you have difficulty doing errands alone such as visiting a doctor's office or shopping? Answer Date of Assessment Author No 02/15/2014 7:00 AM EDT Suárez Kike Hernándezo documented as of this encounter Mental Status * Because of a physical, mental, or emotional condition, do you have serious difficulty concentrating, remembering, or making decisions? Answer Entry Date Author No 02/15/2014 7:00 AM EDT Suárez Betty Ynes documented in this encounter Plan of Treatment Upcoming Encounters Date Type Department Care Team (Late st Contact Info) Description 01/12/2025 11:59 PM EDT Anesthesia Event [facility] Endoscopy [place] [address] [place] [address] Sisi Escobar APRN.[address] [address] 01/22/2025 3:40 PM EDT Office Visit Family Medicine [place] [address] [place] [address] Mary Briseno PA-C [address] [place], [place] [id number] 3 month follow up 01/26/2025 10:00 AM EDT Appointment [facility] Endoscopy [facility] [address] [place] [address] Perry Connell Jr., [address] [place] [address] dieabetic: EGD DIAGNOSTIC/COLONOSC OPY DIAGNOSTIC 02/01/2025 3:15 PM EDT Office Visit [address] [place] [address] 3 month MAYANK/BRM with lab 02/01/2025 3:40 PM EDT Visit (SP) Office Hematology/Oncolog y [address] [place] [address] Kal Kaur MD [address] [place] [address] 3 month MAYANK/BRM with lab 02/02/2025 4:30 PM EDT Office Visit [facility] [address] [place] [address] Gopal Leija DPM [address] [facility] [place] [address] RFC and FU for Pain 03/22/2025 1:30 PM EDT Office Visit Endocrinology [address] [facility] [place] [address] Monae Delgado APRN.MANAGER VALIDATION [address] [place] [address] Return in about 3 months (around 02/24/2025). 08/11/2025 2:40 PM EST Office Visit Rheumatology [address] [place] [address] Vineet Peñaloza [place] [address] [facility] [place] [address] 8 month follow up 02/11/2026 10:00 AM EDT Office Visit Obstetrics/Gynecol ogy [address] [place] [address] [place] [address] [facility] [place] [address] new annual requested RS documented as of this encounter Procedures Procedure Name Priority Date/Time Associated Diagnosis Comments BACTERIAL CULTURE, URINE Routine 02/21/2016 12:42 AM EDT Lower urinary tract infectious disease XR ABDOMEN KUB SUPINE Routine 01/24/2015 11:42 AM EDT Kidney stone documented in this encounter Results * XR ABDOMEN KUB SUPINE (02/21/2016 2:34 PM EDT) Anatomical Region Laterality Modality Other 02/21/2016 2:34 PM EDT Impressions 02/21/2016 3:14 PM EDT IMPRESSION: 1. Unremarkable study as described. Echocardiograph Tech: [employer] Transcribe Date/Time: Feb 21 2016 3:09P Dictated by : BERNARDINO GOSS MD This examination was interpreted and the report reviewed and electronically signed by: BERNARDINO GOSS MD on Feb 21 2016 3:12PM EST Narrative 02/21/2016 3:14 PM EDT * * *Final Report* * * DATE OF EXAM: Feb 21 2016 2:34PM LNX 1333 - XR ABDOMEN KUB SUPINE / PROCEDURE REASON: Calculus of kidney * * * * Physician Interpretation * * * * RESULT: TECHNIQUE: Supine abdomen 2 images HISTORY: Calculus of kidney COMPARISON STUDY: 01/24/2015 and 10/29/2014. RESULT: The right kidney is obscured due to superimposition of fecal material. There are intrarenal no calcifications identified. There are tiny calcifications in the pelvis probably representing phleboliths. There is no bowel obstruction. This patient is status post left hip arthroplasty. us Kamryn Bryson FLOAT NURSE.[facility] RADIOLOGY Final R esult * (ABNORMAL) URINE CULTURE (02/21/2016 12:42 AM EDT) Specimen Request Specimen received in preservative 02/22/2016 12:42 AM EDT [facility] Culture <1,000 CFU/ml Gram negative bacilli Species 1 Insignificant colony count. No further workup. (A) 02/24/2016 12:19 AM EDT [facility] Culture <1,000 CFU/ml Gram negative bacilli Species 2 Insignificant colony count. No further workup. (A) 02/24/2016 12:19 AM EDT [facility] Culture 10,000 - <50,000 CFU/ml Normal Urogenital yandel 02/24/2016 12:19 AM EDT [facility] Specimen of unknown material (specimen) URINE SPECIMEN / Unknown 02/21/2016 12:42 AM EDT 02/22/2016 12:42 AM EDT Kamryn Bryson FLOAT NURSE.MANAGER VALIDATION MICROBIOLOGY Final R esult [facility] [address] [place] [address] * XR ABDOMEN KUB SUPINE (01/24/2015 11:42 AM EDT) Anatomical Region Laterality Modality Other 01/24/2015 11:4 2 AM EDT Impressions 01/24/2015 12:03 PM EDT IMPRESSION: No calcified urinary tract stones are identified radiographically. Nonobstructive bowel gas pattern. Echocardiograph Tech: [employer] Transcribe Date/Time: Jan 24 2015 12:01P Dictated by : STACY MUSE MD This examination was interpreted and the report reviewed and electronically signed by: STACY MUSE MD On Jan 24 2015 12:01PM Narrative 01/24/2015 12:03 PM EDT * * *Final Report* * * DATE OF EXAM: Jan 24 2015 11:42AM LNX 1333 - XR ABDOMEN KUB SUPINE / PROCEDURE REASON: Calculus of kidney * * * * Physician Interpretation * * * * RESULT: EXAM: Supine AP views of the abdomen HISTORY: Calculus of kidney. History of kidney stones. COMPARISON: 11/15/14 FINDINGS: No calcified stones are identified overlying either renal shadow, the expected course of either ureter or the urinary bladder. The bowel gas pattern is nonobstructive. Kamryn Bryson FLOAT NURSE.MANA[employer]IDATION RADIOLOGY Final R esult documented in this encounter Visit Diagnoses Diagnosis Kidney stone- Primary Calculus of kidney Lower urinary tract infectious disease Urinary tract infection, site not specified Kidney stone Calculus of kidney documented in this encounter Additional Health Concerns Infection Onset Date Last Indicated Resolved Time COVID-19 Rule-Out 06/29/2021 06/29/2021 06/29/2021 4:04 AM EST COVID-19 Rule-Out 02/19/2022 02/19/2022 02/20/2022 12:00 AM EDT COVID-19 Rule-Out 09/20/2022 09/20/2022 09/20/2022 9:14 PM EDT COVID-19 Rule-Out 07/16/2024 07/16/2024 07/16/2024 2:51 PM EST documented as of this encounter Care Teams Small Animal Caretaker Relationship Specialty Start Date End Date Pcp, No PCP - General 02/12/14 03/11/14 Veronica Jo MD [address] [facility] [place] [address] PCP - General 03/12/14 04/29/14 Sharmin Corado MD [address] [facility] [place] [address] PCP - General Internal Medicine 04/30/14 10/04/14 Pcp, No PCP - General Family Medicine 10/05/14 11/14/14 Cleopatra Pozo MD 1 [place] [address] PCP - General Internal Medicine 11/15/14 10/24/16 Pcp, No PCP - General 10/25/16 01/23/17 Pcp, No PCP - General Family Medicine 01/24/17 04/16/17 Pcp, No PCP - General 04/17/17 11/07/17 Joseph Hunt MD [address] [facility] [address] [place] [address] PCP - General Family Medicine 04/02/19 02/12/20 Joseph Hunt MD [address] [facility] [address] [place] [address] PCP - General Family Medicine 04/27/20 09/11/20 Mary Briseno PA-C [address] [place] [address] PCP - General Family Medicine 09/12/20 01/22/21 Dolores Augustin MD [address] [place] [address] PCP - General Family Medicine 01/23/21 04/09/21 Malini Lemon, PLANER OPERATOR [address] [place] [phone] PCP - General 04/10/21 06/28/21 Mary Briseno PA-C [address] [facility] [place] [place] [address] PCP - General Internal Medicine 06/29/21 04/08/22 Dolores Augustin MD [address] [facility] [address] PCP - General Family Medicine 04/09/22 09/19/22 Mary Briseno PA-C [address] [facility] [address] PCP - General Internal Medicine 09/20/22 Yousif Pichardo [address] [place] [address] Gastroenterology 03/19/17 Malini Lemon, PLANER OPERATOR [address] [facility] [place] [phone] Referring 04/10/21 Tamie Ignacio SULEIMAN [address] [place] [phone] Primary Care Cleaning Professional 02/23/22 03/24/22 Ariella Hernández, SULEIMAN [address] [place] [address] Site Planner Primary Care 03/26/22 11/11/22 Shirley Crook, SULEIMAN [address] [place] [phone] Site Planner 11/12/22 02/05/24 Dolores Augustin MD [address] [place] [address] Power Lineman Technician Family Medicine 05/15/24 Ana Paula Jha APRN [address] [facility] [place] [phone] Power Lineman Technician Internal Medicine 05/15/24 [place] [address] [address] [place] [phone] Physician Hematology/Oncology 08/13/24 12/14/24 Cleopatra Maldonado, SULEIMAN [address] [place] [address] Specialty Health Physicist Hematology/Oncology 08/13/24 Veena Duron LSW [place] 08/19/24 Kal Kaur MD [address] [place] [address] Physician Hematology/Oncology 12/15/24 documented as of this encounter
--- OUTSIDE RECORDS SUMMARY | 2025-01-19 01:09 | XMS_ITS | Encounter Summary ---
Author Organization [facility] Address [address] [place] [address] Care Team Providers Care Associate Creative Director Name Role Phone Yousif Pichardo Unavailable [phone] Malini Lemon NP Unavailable [phone] Mary Briseno PA-C Primary Care Provider [phone] Shirley Crook RN Unavailable [phone] Dolores Augustin MD Unavailable Ana Paula Jha APRN Unavailable [phone] Randall Stearns MD Unavailable Unavail able Cleopatra Maldonado RN Unavailable [phone] Veena Duron Unavailable Unavailable Kal Kaur MD Unavailable [phone] Source Comments In the event this information is protected by the Federal Confidentiality of Alcohol and Drug AbusePatient Records regulations: The Federal rules restrict any use of the information to criminally investigate or prosecute any alcohol or drug abuse patient.[facility] Reason for Visit * Reason Comments Radiology XR Encounter Details Date Type Department Care Team ([facility] Contact Info) Description 10/09/2023 Radiology Radiology [address] [place] [address] Yaquelin Monet, RT(R) Radiology XR Social History Tobacco Use Types Packs/Day Years Used Date Smoking Tobacco: Every Day Cigarettes 1 25 Passive Smoke Exposure: Current Smokeless Tobacco: Never Alcohol Use Standard Drinks/Week Comments No 0 (1 standard drink = 0.6 oz pur e alcohol) PHQ-2 Answer Date Recorded PHQ-2 score 0 10/10/2023 Hunger Vital Sign Answer Date Recorded Within [...] N ot on file 05/14/2020 Data from: [email or web address].medicine.[email or web address].edu/. Last address used for calculation Not [...] Progress Notes * Yaquelin Monet RT(R) - 10/09/2023 11:34 AM EDT Radiology Service Progress Note PATIENT NAME: Lilo Calles DATE OF SERVICE: October 09, 2023 TIME: 11:34 AM PATIENT IDENTITY VERIFICATION COMPLETED USING TWO (2) IDENTIFIERS: Name and Date of confirmedby patient verbally. FALL SCREENING: Has the patient had 2 falls in the last year or 1 fall with injury or currently using an Ambulatory Assistive Device (Walker, Cane, Wheelchair, Crutches, etc.)? Yes, Patient High Riskfor Falls What interventions were put in place to prevent falls during this visit? Offered Assistance with Transfers/Clothing, Instructed Patient to Remain Seated (Not on Exam Table) Until Exam, and Increased Observations by Caregivers PATIENT GENDER DATA: Female. status: : No status: NO. PATIENT RELEVANT IMPLANT DATA REVIEWED: Not Applicable PATIENT PRESENTS WITH AN IMPLANTABLE OR ATTACHED AS400 CONSULTANT: No RADIOLOGY DEPARTMENT: General X-ray: Exam(s) Completed: Abdomen X-Ray: Abdomen with Upright PERIPHERAL IV DATA: Not applicable SIGNED BY: RT Vincent(R) October 09, 2023 11:34 AM documented in this encounter Plan of Treatment Upcoming Encounters Date Type Department Care Team (Late st Contact Info) Description 01/12/2025 11:59 PM EDT Anesthesia Event [facility] [address] [place] [address] Sisi Escobar, SKETCHER.DEPORTATION EXAMINER [address] [place] [address] 01/22/2025 3:40 PM EDT Office Visit Family Medicine [place] [address] [place] [address] Mary Briseno PA-C [address] [facility] [place] [address] 3 month follow up 01/26/2025 10:00 AM EDT Appointment [facility] [place] [address] [place] [address] Perry Connell Jr., [address] [facility] [address] [place] [phone] dieabetic: EGD DIAGNOSTIC/COLONOSC OPY DIAGNOSTIC 02/01/2025 3:15 PM EDT Office Visit [facility] [address] [place] [address] 3 month MAYANK/BRM with lab 02/01/2025 3:40 PM EDT Visit (SP) Office Hematology/Oncolog y [address] [place] [place] [address] Kal Kaur MD [address] [place] [address] [place] [address] 3 month MAYANK/BRM with lab 02/02/2025 4:30 PM EDT Office Visit [facility] [address] [facility] [place] [address] Gopal Leija, GERBER [address] [facility] [place] [address] RFC and FU for Pain 03/22/2025 1:30 PM EDT Office Visit Endocrinology [address] [facility] [place] [address] Monae Delgado, SKETCHER.PHOTOGRAPHER PORTRAIT [address] [facility] [address] [address] [place], [place] [id number] Return in about 3 months (around 02/24/2025). 08/11/2025 2:40 PM EST Office Visit Rheumatology [address] [place] [address] Vineet Peñaloza [place] [address] [facility] [place] [address] 8 month follow up 02/11/2026 10:00 AM EDT Office Visit Obstetrics/Gynecol ogy [address] [place] [address] [place] [address] [place] [address] new annual requested RS documented as of this encounter Visit Diagnoses Not on filedocumented in this encounter Additional Health Concerns Infection Onset Date Last Indicated Resolved Time COVID-19 Rule-Out 07/16/2024 07/16/2024 07/16/2024 2:51 PM EST documented as of this encounter Care Teams Associate Creative Director Relationship Specialty Start Date End Date Mary Briseno PA-C [address] [place], [place] [phone] PCP - General Internal Medicine 09/20/22 Yousif Pichardo [address] [address] Gastroenterology 03/19/17 Malini Lemon NP [address] [place] [phone] Referring 04/10/21 [place] [address] [place] [address] General Education Professor 11/12/2201/09 Dolores Augustin MD [address] [place] [address] Violin Teacher Family Medicine 05/15/24 Ana Paula Jha APRN [address] [place] [address] Violin Teacher Internal Medicine 05/15/24 Randall Stearns MD [address] [place] [address] Physician Hematology/Oncology 08/13/24 12/14/24 Cleopatra Maldonado, RN [address] [place] [address] Specialty Distribution Tech Hematology/Oncology 08/13/24 Veena Duron LSW Website Project Manager 08/19/24 Kal Kaur MD [address] [place] [address] Physician Hematology/Oncology 12/15/24 documented as of this encounter
--- OUTSIDE RECORDS SUMMARY | 2025-01-19 01:09 | XMS_ITS ---
Author Organization [facility] Address [address] [place] [address] Care Team Providers Care Creative Manager Name Role Phone Yousif Pichardo Unavailable [phone] Malini Lemon NP Unavailable [phone] Mary Briseno PA-C Primary Care Provider [phone] Dolores Augustin MD Unavailable Ana Paula Jha HOG COUNTER Unavailable [phone] Cleopatra Maldonado RN Unavailable [phone] Veena Duron LAUNDRY MARKER SUPERVISOR Unavailable Unavailable Kal Kaur MD Unavailable [phone] Active Problems Problem Noted Date Diagnosed Date Capsulitis of metatarsophalangeal (MTP) joints o f both feet 12/01/2024 Foot cramps 12/01/2024 Equinus contracture of ankle 12/01/2024 Hammertoes of both feet 12/01/2024 HTN (hypertension) 06/25/2024 Assessment & Plan (06/25/2024 10:47 AM EST): Assessment: diet control, states has tried three blood pressure agents without success Last 5 Encounter BP Readings: Date: BP: 06/25/2024 141/85 06/24/2024 142/82 06/11/2024 145/75 05/28/2024 154/80 04/14/2024 148/79 B12 deficiency 07/18/2023 Osteoporosis 04/18/2023 History of pulmonary embolism 08/02/2022 Assessment & Plan (06/25/2024 10:53 AM EST): Assessment: following total hip (right) 2007, completed course of thinner, no recurrence Assessment & Plan (08/02/2022 2:47 PM EST): Assessment: post THR 2007, no recurrence Hypokalemia 08/02/2022 Assessment & Plan (08/02/2022 2:49 PM EST): Assessment: 3.3 from 06/09/2022. Patient states she was on PO potassium, ran out and has not taken in 4 weeks. Will check K today Counseling regarding advance care planning and goals of care 02/21/2022 Hydroureteronephrosis 06/29/2021 Ureteral stone with hydronephrosis 06/29/2021 Acute cystitis with hematuria 06/29/2021 Nicotine use disorder, F17.2 06/29/2021 Assessment & Plan (06/25/2024 10:54 AM EST): Assessment: reports that she has been smoking cigarettes. She started smoking about 45 years ago. She has a 45 pack-year smoking history. She has been exposed to tobacco smoke. She has never used smokeless tobacco. Advised to abstain day of surgery, states she is not sure that she can. 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 Uncontrolled type 1 diabetes mellitus with diabetic polyneuropathy 10/25/2015 Insulin pump status 10/25/2015 Type 1 diabetes mellitus with diabetic polyneuro vicente 04/06/2015 Assessment & Plan (06/26/2024 7:10 AM EST): Assessment: Currently has insulin pump Hemoglobin A1C (%) Date Value 06/25/2024 5.6 02/25/2024 5.8 11/13/2021 7.0 11/18/2020 6.5 03/07/2020 7.7 11/21/2017 6.9 10/07/2017 8.4 08/13/2017 6.6 Hemoglobin A1C (POCT) (%) Date Value 05/27/2023 6.8 12/18/2022 6.5 08/13/2022 6.6 04/09/2022 7.1 08/11/2021 7.4 Assessment & Plan (08/02/2022 2:46 PM EST): Assessment: on insulin pump Kidney stone 01/20/2015 History of breast cancer 07/07/2014 Urethral stenosis 04/26/2014 Kidney lesion 04/26/2014 Personal history of malignant neoplasm of breast 01/22/2014 Assessment & Plan (06/25/2024 10:51 AM EST): Assessment: presents for surgical intervention Breast cancer 07/16/2013 Diabetes mellitus 07/16/2013 Chronic pain 07/16/2013 Meatal stenosis 04/07/2012 Neck pain 04/07/2010 URI, acute 05/24/2009 Vitamin D deficiency 02/18/2009 Goiter, unspecified 03/02/2008 Contact dermatitis and other eczema, due to unspecified cause 08/19/2007 Essential and other specified forms of tremor Assessment & Plan (06/25/2024 10:49 AM EST): Assessment: stable essential tremor Gastroparesis 12/13/2004 Rheumatoid arthritis 12/13/2004 Assessment & Plan (06/25/2024 10:51 AM EST): Assessment: stable, no longer taking plaquenil Current Treatment and Therapy Plans AMB CYANOCOBALAMIN 1000 D1,29,57 - Q84D* Plan Start Date:09/28/2024 Plan Provider:Randall Stearns MD Linked Problems Gastrointestinal stromal casey or (GIST) of small intestine (HCC)Osteoporosis with current pathological fracture, unspecified osteoporosis type, initial encounter Treatment Medications Current Day (Day 1 , Cycle 1 - Planned for 09/28/2024) Next Day (Day 29, Cycle 1 - Planned for 12/21/2024) No medications scheduled. No medications schedul ed. No medications scheduled. Other Current Plans AMB BONE MODIFYING AGENT: $$$$ - Q180D IF CrCl IS LESS THAN 30 ML/MIN - DENOSUMAB* Plan Start Date:10/12/2024 Plan Provider:Estelita Mesa PA-C Linked Problems Age-related osteoporosis wit hout current pathological fracture Treatment Medications Current Day (Day 1 , Cycle 1 - Planned for 10/12/2024) Next Day (Day 1, Cycle 2 - Planned for 04/10/2025) denosumab (PROLIA) denosumab 60 mg inje ction (PROLIA) denosumab 60 mg injection (PROLIA) Past Treatment and Therapy Plans NON-CHEMO 1 Plan Name Start Date Discontinue Date Treatment Medications Discontinue Reason Plan Provider Cycles AMB BONE MODIFYING AGENT: $$$$ - Q180D IF CrCl IS LESS THAN 30 ML/MIN 05/06/2008/12/2024 denosumab (PROLIA) Treatment Complete Randall Stearns MD 3 of 3 cycles started CYANOCOBALAMIN 1000 D1,29,57 - Q84D 1 12/15/2022 No medications scheduled. Other Randall Stearns MD 2 of 4 cycles started Resolved Problems Problem Noted Date Diagnosed Date Resolved Date Gout 06/25/2024 06/25/2024 COPD (chronic obstructive pulmonary disease) 2 07/09/2023 Assessment & Plan (08/02/2022 2:46 PM EST): Assessment: patient states she is asymptomatic No medication SpO2 100% on RA; LCTAB Malnutrition of mild degree 10/15/2017 03/01/2022 GIST (gastrointestinal frances al tumor) of small bowel, malignant 08/30/2017 10/15/2017 Personal history of breast cancer 10/03/2015 02/22/2021 Overview (10/03/2015): lumpectomy 2007 left Sinusitis acute 11/14/2010 02/22/2021 Lower urinary tract infectious disease 06/06/2010 02/22/2021 Beth greenberg. 08/15/2007 02/22/2021 VIRAL HEPATITIS TYPE C WITHOUT COMA 07/23/2006 03/01/2022 DIABETES TYPE I W NEURO MANIF-UNCONTRLLD 12/13/2004 06/22/2015 Polyneuropathy in diabetes(357.2) 12/13/2004 03/01/2022 COPD with exacerbation 03/01
--- OUTSIDE RECORDS SUMMARY | 2025-01-19 01:09 | XMS_ITS | Encounter Summary ---
Author Organization [facility] Address [address] [place] [address] Care Team Providers Care Billet Sawyer Name Role Phone Yousif Pichardo Unavailable [phone] Malini Lemon NP Unavailable [phone] Mary Briseno PA-C Primary Care Provider [phone] Dolores Augustin MD Unavailable Ana Paula Jha APRN Unavailable [phone] Cleopatra Maldonado RN Unavailable [phone] Veena Duron TEST DRILLER Unavailable Unavailable Kal Kaur MD Unavailable [phone] Source Comments In the event this information is protected by the Federal Confidentiality of Alcohol and Drug AbusePatient Records regulations: The Federal rules restrict any use of the information to criminally investigate or prosecute any alcohol or drug abuse patient.[facility] Reason for Visit * Reason Comments Patient Update Care Coordination Clinical update Encounter Details Date Type Department Care Team (Late st Contact Info) Description 01/15/2025 Telephone Cancer Appts [place] [address] Kal Kaur MD [address] [place] [address] [place] [address] Patient Update; Care Coordination (Clinical update) Social History Tobacco Use Types Packs/Day Years [...] is lower risk 7 03/02/2024 Data from: https://www.neighborhoodatlas.medicine.[facility].edu/. Last address used for calculation spring03/02/2024 [...] Bonita Durbin RN documented in this encounter Miscellaneous Notes * Telephone Encounter - Tracey Burns - 01/18/2025 9:47 AM EDT Patient is rescheduled to 02/[address] 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 Pt states she saw Dr Fernández's yesterday, cussed her out in the office, and left. Pt states she's in a fog and having headaches, feels unsteady on her feet. This is a transition of care to Dr Estevez from Dr Stearns. I am not familiar with this patient to know if this is normal behavior for pt or not. Estelita Andrade, and Daryn are not here to ask. Should pt have head CT done? Pt does voice that she wants to reschedule with Dr Estevez as soon as she can and becomes tearful on the phone. Requesting to speak with Snow at checkout, who is currently with a patient. Explained to pt that we will call her back to reschedule her appointment. Please advise Moni Otero RN * Telephone Encounter - Leola Easley - 01/15/2025 1:58 PM EDT Farnaz called in to cancel her visit today with Dr. Estevez. Says she is not feeling well and heading to the ED. Call forwarded to Fiberglass Pipe Covering Supervisor on site. Leola Easley PSS documented in this encounter Plan of Treatment Upcoming Encounters Date Type Department Care Team (Late st Contact Info) Description 01/12/2025 11:59 PM EDT Anesthesia Event [facility] [place] [address] [place] [phone] [place] [address] 01/22/2025 3:40 PM EDT Office Visit Family Medicine [place] [address] [place] [address] Mary Briseno PA-C [address] [place] [address] 3 month follow up 01/26/2025 10:00 AM EDT Appointment [facility] [place] [address] [address] [place] [phone] Perry Connell Jr., [address] [place] [phone] dieabetic: EGD DIAGNOSTIC/COLONOSC OPY DIAGNOSTIC 02/01/2025 3:15 PM EDT Office Visit [facility] [address] [place] [address] [place] [address] 3 month MAYANK/BRM with lab 02/01/2025 3:40 PM EDT Visit (SP) Office Hematology/Oncolog y [address] [place] [address] Kal Kaur MD [address] [facility] [place] [address] 3 month MAYANK/BRM with lab 02/02/2025 4:30 PM EDT Office Visit [facility] [address] [place] [address] Gopal Leija, DPM [address] [place] [address] RFC and FU for Pain 03/22/2025 1:30 PM EDT Office Visit Endocrinology [address] [place] [place] [address] Monae Delgado APRN.NEGATIVE TURNER APPRENTICE [address] [place] [address] Return in about 3 months (around 02/24/2025). 08/11/2025 2:40 PM EST Office Visit Rheumatology [address] [place] [address] Vineet Peñ[place] [address] [facility] [place] [address] 8 month follow up 02/11/2026 10:00 AM EDT Office Visit Obstetrics/Gynecol ogy [address] [place] [address] [place] [address] [place] [address] new annual requested RS documented as of this encounter Visit Diagnoses Not on filedocumented in this encounter Care Teams Billet Sawyer Relationship Specialty Start Date End Date Mary Briseno PA-C [address] [facility] [place] [place] [address] PCP - General Internal Medicine 09/20/22 Yousif Pichardo [address] [address] Gastroenterology 03/19/17 Malini Lemon, LICENSING WORKER [address] [place] [phone] Referring 04/10/21 Dolores Augustin MD [address] [place] [address] Design Painter Family Medicine 05/15/24 Ana Puala Jha APRN [address] [place] [address] Design Painter Internal Medicine 05/15/24 Cleopatra Maldonado, SULEIMAN [address] [place] [address] Specialty Fiberglass Pipe Covering Supervisor Hematology/Oncology 08/13/24 Veena Duron LSW Institutional Commodity Analyst 08/19/24 Kal Kaur MD [address] [place] [address] Physician Hematology/Oncology 12/15/24 documented as of this encounter
--- OUTSIDE RECORDS SUMMARY | 2025-01-19 01:09 | XMS_ITS | Encounter Summary ---
Author Organization [facility] Address [address] [place] [address] Care Team Providers Care Design Project Manager Name Role Phone hCi MosleymejiaYousif Unavailable [phone] Malini Lemon NP Unavailable [phone] Ariella Hernández RN Unavailable [phone] Dolores Augustin MD Primary Care Provider [phone] Mary Briseno PA-C Primary Care Provider [phone] Shirley Crook RN Unavailable [phone] Dolores Augustin MD Unavailable Ana Paula Jha APRN Unavailable Randall Stearns MD Unavailable Unavail able Cleopatra Maldonado RN Unavailable [phone] Veena Duron Unavailable Unavailable Kal Kaur MD Unavailable [phone] Source Comments In the event this information is protected by the Federal Confidentiality of Alcohol and Drug AbusePatient Records regulations: The Federal rules restrict any use of the information to criminally investigate or prosecute any alcohol or drug abuse patient.[facility] Encounter Details Date Type Department Care Team (Late st Contact Info) Description 05/25/2022 GI Preprocedure Call [facility] [address] [facility] [place] [address] Dolores Augustin MD [address] [facility] [place], [place] [id number] Social History Tobacco Use Types Packs/Day Years Used Date Smoking Tobacco: Every Day Cigarettes 1 25 Smokeless Tobacco: Never Alcohol Use Standard Drinks/Week Comments No 0 (1 standard drink = 0.6 oz pur e alcohol) PHQ-2 Answer Date Recorded PHQ-2 score 0 11/13/2021 Area Deprivation Index Answer Date Butch rded National Score (1-100), lower number is lower ri sk Not on file 05/14/2020 State Score (1-10), lower number is lower risk N ot on file 05/14/2020 Data from: https://www.neighborhoodatlas.medicine.[facility].edu/. Last address used for calculation Not on file 05/14/2020 Comments No Sex and Gender Information Value Date Recorded Sex Assigned at Not on file Legal Sex Female 7:29 AM EST Gender Identity Not on file Sexual Orientation Not on file COVID-19 Exposure Response Date Recorded In the last 10 days, have yo u been in contact with someone who was confirmed or suspected to have Coronavirus/COVID-19? No / Unsure 04/27/2022 2:31 PM EST documented as of this encounter Functional Status [...] Description 01/12/2025 11:59 PM EDT Anesthesia Event [facility] [address] [place] [phone] Sisi Escobar APRN.[place] [phone] 01/22/2025 3:40 PM EDT Office Visit Family Medicine [place] [address] [place] [address] Mary Briseno PA-C [address] [place] [address] 3 month follow up 01/26/2025 10:00 AM EDT Appointment [facility] [place] [address] [address] [place] [phone] Perry Connell Jr., [address] [place] [phone] dieabetic: EGD DIAGNOSTIC/COLONOSC OPY DIAGNOSTIC 02/01/2025 3:15 PM EDT Office Visit [facility] [address] [place] [address] 3 month MAYANK/BRM with lab 02/01/2025 3:40 PM EDT Visit (SP) Office Hematology/Oncolog y [address] [place] [address] Kal Kaur MD [address] [place] [address] 3 month MAYANK/BRM with lab 02/02/2025 4:30 PM EDT Office Visit [facility] [address] [facility] [place] [address] Gopal Leija DPSalud [address] [facility] [place] [address] RFC and FU for Pain 03/22/2025 1:30 PM EDT Office Visit Endocrinology [address] [facility] [place] [address] Monae Delgado APRN.LUMBER CARRIER OPERATOR [address] [facility] [place] [address] Return in about 3 months (around 02/24/2025). 08/11/2025 2:40 PM EST Office Visit Rheumatology [address] [place] [address] Vineet Peñaloza [place] [address] [facility] [place] [address] 8 month follow up 02/11/2026 10:00 AM EDT Office Visit Obstetrics/Gynecol ogy [address] [place] [address] [place] [address] [place] [address] new annual requested RS documented as of this encounter Visit Diagnoses Not on filedocumented in this encounter Additional Health Concerns Infection Onset Date Last Indicated Resolved Time COVID-19 Rule-Out 09/20/2022 09/20/2022 09/20/2022 9:14 PM EDT COVID-19 Rule-Out 07/16/2024 07/16/2024 07/16/2024 2:51 PM EST documented as of this encounter Care Teams Design Project Manager Relationship Specialty Start Date End Date Dolores Augustin MD [address] [facility] [place] [address] PCP - General Family Medicine 04/09/22 09/19/22 Mary Briseno PA-C [address] [place] [address] PCP - General Internal Medicine 09/20/22 Yousif Pichardo [address] [address] Gastroenterology 03/19/17 Malini Lemon, CATHETER BUILDER [address] [place] [phone] Referring 04/10/21 Ariella Hernández RN [address] [place] [address] Rim Fire Priming Tool Setter Primary Care 03/26/2211/11 Shirley Crook, SULEIMAN [address] [place] [address] Rim Fire Priming Tool Setter 11/12/2201/09 Dolores Augustin MD [address] [place] [address] China And Silverware Salesperson Family Medicine 05/15/24 Ana Paula Jha APRN [address] [place] [address] China And Silverware Salesperson Internal Medicine 05/15/24 [place] [address] [place] [phone] Physician Hematology/Oncology 08/13/24 12/14/24 Cleopatra Maldonado, SULEIMAN [address] [place] [address] [place] [address] Specialty Technical Support Technician Hematology/Oncology 08/13/24 Veena Duron LSW Construction Rigger 08/19/24 Kal Kaur MD [address] [place] [address] [place] [address] Physician Hematology/Oncology 12/15/24 documented as of this encounter
--- OUTSIDE RECORDS SUMMARY | 2025-01-19 01:09 | XMS_ITS | Clinical Summary ---
Author Organization [facility] Address [address] [place] [address] Care Team Providers Care Supervisor Statement Clerks Name Role Phone Yousif Pichardo Unavailable [phone] Malini Lemon NP Unavailable [phone] Mary Briseno PA-C Primary Care Provider [phone] Dolores Augustin MD Unavailable Ana Paula Jha APRN Unavailable [phone] Cleopatra Maldonado RN Unavailable [phone] Veena Duron WORKGROUP LEADER Unavailable Unavailable Kal Kaur MD Unavailable [phone] Allergies Active Allergy Reactions Criticality Noted Date Comments Amoxicillin-Pot Clavulanate Diarrhea 05/12/20 20 Ciprofloxacin Itching 08/03/2010 Imatinib Unknown 08/11/2018 Medications alcohol swabs (ALCOHOL PREP PADS) Use every 3 days with sensor change 100 Each 1 05/27/20 23 Active Lancets (ACCU-CHEK FASTCLIX LANCET DRUM) USE TO TEST BLOOD SUGAR FOUR TIMES DAILY Dx: E10.9 306 Each 3 4 10:33 AM EDT 05/27/20 23 Active Blood-Glucose Meter (ONETOUCH ULTRA2 METER) Use to test blood glucose four times daily. 1 Each 4 1:26 PM EST 06/18/19 24 Active ibuprofen (MOTRIN) 600 mg tablet Take 1 tablet by mouth every 6 hours as needed for pain. 28 tablet 4 3:55 PM EDT 09/10/19 24 Active vitamin K2 100 mcg cap Take 1 capsule by mouth once daily. 30 capsule 11 03/10/20 24 Active berberine chloride 500 mg cap Take 1 capsule by mouth once daily. 04/03/20 24 Active predniSONE (DELTASONE) 20 mg tabletIndicati ons:Rheumatoid arthritis involving multiple sites, unspecified whether rheumatoid factor present (HCC) Take one tablet by mouth once daily as needed. 30 tablet 5 5 10:35 AM EST 05/05/20 24 Active magnesium chloride (MAG 64 ORAL) Take by mouth once daily. Active GUARDIAN 4 GLUCOSE SENSOR arina CHANGE sensor every FIVE TO SEVEN DAYS as directed 5 Each 07/14/19 25 Active GUARDIAN 4 TRANSMITTER arina USE with Guardian 4 Sensors TO monitor blood glucose as directed 1 Each 07/14/19 25 Active ondansetron (ZOFRAN) 8 mg tablet Take 1 tablet by mouth every 8 hours as needed. 30 tablet 3 5 11:10 AM EDT 07/28/19 25 Active albuterol (PROVENTIL) 2.5 mg /3 mL (0.083 %) nebulizer solutionIndica tions:Subacute cough Use 3 mL via nebulizer every 4 hours as needed for wheezing/shortne ss of breath for up to 7 days. 90 mL 5 9:35 AM EST 08/13/19 25 Active potassium chloride (K-TAB) 10 mEq tablet Take 2 tablets by mouth once daily. 180 tablet 3 5 12:47 PM EDT 08/14/19 25 Active busPIRone (BUSPAR) 5 mg tablet Take 1 tablet by mouth three times a day. 90 tablet 08/19/19 25 Active imatinib (GLEEVEC) 400 mg tablet TAKE 1 TABLET (400 MG) BY MOUTH ONCE DAILY. 30 tablet 11 5 10:48 AM EDT 09/09/19 25 Active ergocalciferol 50,000 unit capsule (VITAMIN D2, DRISDOL) TAKE 1 CAPSULE BY MOUTH ONE TIME A WEEK. 12 capsule 3 5 10:48 AM EDT 09/29/19 25 2025 Active nicotine (NICODERM) 21 mg/24 hr Apply 1 patch as directed every 24 hours. 30 patch 10/07/19 25 Active tamsulosin (FLOMAX) 0.4 mg Take 1 capsule by mouth once daily. 90 capsule 3 8:56 AM EDT 10/21/19 Active insulin lispro (ADMELOG U-100 INSULIN LISPRO) 100 unit/mL injection USE APPROXIMATELY 60 UNITS EVERY DAY VIA INSULIN PUMP 60 mL 3 5 3:52 PM EDT 11/25/19 25 Active blood sugar diagnostic (ACCU-CHEK GUIDE TEST STRIPS) test strip Test blood sugar 8 times daily. 800 each 3 5 3:52 PM EDT 11/25/19 25 Active cholestyramine -sucrose (QUESTRAN) 4 gram powder Take 1 g by mouth once daily. Mix with 60-180 mL of water or other noncarbonated liquid, highly fluid soup, applesauce or crushed pineapple before ingesting 378 g 2 10:48 AM EDT 12/26/192024 Active colestipol (COLESTID) 1 gram tablet Take 2 tablets by mouth once daily. 60 tablet 2 12/26/19 25 2024 Discontinued metroNIDAZOLE (FLAGYL) 500 mg tablet Take 1 tablet by mouth two times a day for 7 days. 14 tablet 10:48 AM EDT 12/26/192024 Active Problems Problem Noted Date Diagnosed Date [...] Type 1 diabetes mellitus with diabetic polyneuro ivcente 04/06/2015 Assessment & Plan (06/26/2024 7:10 AM [...] EST): Assessment: stable, no longer taking plaquenil Resolved Problems Problem Noted Date Diagnosed Date [...] Lower urinary tract infectious disease 06/06/2010 02/22/2021 Palms lessions. 08/15/2007 02/22/2021 VIRAL HEPATITIS TYPE C WITHOUT COMA 07/23/2006 03/01/2022 DIABETES TYPE I W NEURO MANIF-UNCONTRLLD 12/13/2004 06/22/2015 Polyneuropathy in diabetes(357.2) 12/13/2004 03/01/2022 COPD with exacerbation 03/01 Encounters Date Type Department Care Team Description 01/15/2025 Telephone Cancer Appts [facility] [place] [address] Kal Kaur MD Patient Update; Care Coordination (Clinical update) 01/14/2025 2:15 PM EDT Office Visit [facility] [address] [facility] [place] [phone] Marina Jackson MD Postoperative wound dehiscence, initial encounter (Primary Dx) 01/07/2025 Social Work Hematology/Oncolog y [address] [place] [address] Veena Duron LSW 12/30/[address] [place] [address] [address] [facility] [place] [address] Mary Briseno PA-C Patient Update 12/25/2024 11:00 AM EDT Office Visit Gastroenterology [address] [place], [place] [id number] Perry Connell Jr., DO 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, malignant (HCC) (Primary Dx); Dyspepsia and disorder of function of stomach; Diarrhea, unspecified type 12/25/2024 Travel 12/17/2024 Telephone Endocrinology [address] [place] [address] Flor Rodriguez APRN.DIRECTOR PART Forms ([employer] /) 12/17/[address] [place] [address] Monae Delgado APRN.DIRECTOR PART Statin Medication Request 12/10/2024 2:40 PM EDT Office Visit Rheumatology [address] [place] [address] Vineet Peñaloza MD Rheumatoid arthritis involving multiple sites, unspecified whether rheumatoid factor present (HCC) (Primary Dx); Long-term use of Plaquenil 12/01/2024 3:00 PM EDT Office Visit [facility] [address] [place] [place] [address] Pa Leija DPM Capsulitis of metatarsophalangeal (MTP) joints of both feet (Primary Dx); Hammertoes of both feet; Foot cramps; Equinus contracture of ankle; Type 1 diabetes mellitus with diabetic polyneuropathy (HCC) 11/27/2024 Telephone Endocrinology [address] [place] [address] Monae Delgado APRN.DIRECTOR PART 11/24/2024 2:30 PM EDT Office Visit Endocrinology [address] [place] [address] Monae Delgado, SANDEEP.DIRECTOR PART Type 1 diabetes mellitus with microalbuminuria (HCC) (Primary Dx); penitentiary (current) use of insulin (HCC); Insulin pump status 11/24/2024 Travel 11/18/2024 Telephone [facility] [address] [place] [address] Mary Briseno PA-C recommendation for statin medication 11/05/2024 Social Work Hematology/Oncolog y [address] [place] [address] [place] [address] Veena Duron LSW 11/03/[address] [place] [address] [place] [address] Mary Briseno PA-C 10/22/2024 Telephone Endocrinology [address] [place] [address] Monae Delgado APRN.CNP 10/20/2024 4:20 PM EDT Office Visit [facility] [place] [address] [place] [address] Mary Briseno PA-C Osteoporosis, unspecified osteoporosis type, unspecified pathological fracture presence (Primary Dx); Rheumatoid arthritis involving multiple sites, unspecified whether rheumatoid factor present (HCC); Type 1 diabetes mellitus with diabetic polyneuropathy (HCC) 10/20/2024 Travel from Last 3 Months Immunizations Immunization Administration Dates Next Due hepatitis A-hepatitis B (Hep A-HepB) vaccine (TWINRIX) 12/02/2006,07/01/2006,05/31/2006 influenza (IIV3) vaccine, ag e 6 mo - 64 yr, trivalent (AFLURIA, FLULAVAL, FLUVIRIN, FLUZONE) 03/16/2014 influenza (IIV3) vaccine, tr ivalent (AFLURIA, FLULAVAL, FLUVIRIN, FLUZONE) 03/16/2014,03/18/2013 influenza (IIV4) vaccine, ag e 6 mo - 64 yr, quadrivalent (AFLURIA, FLULAVAL, FLUZONE) 03/25/2018 influenza vaccine, unspecified formulation 03/12,05/12/2010 pneumococcal polysaccharide (PPV23) vaccine, 23 valent (PNEUMOVAX 23) 03/29/1998 tetanus diphtheria pertussis (Tdap) vaccine, age 7+ yr (ADACEL, BOOSTRIX) 02/17/2014,07/01/2011 Family History Medical History Relation Comments Cancer Brother Coronary Artery Disease Father lat e 60s. Psychiatry Mother in mental home. Breast Cancer Sister unknown source None Son Relation Status Comments Brother Father Mother Sister Son Social History Tobacco Use Types Packs/Day Years Used Date Smoking Tobacco: Every Day Cigarettes 1 45.6 Started: 06/25/1979 Passive Smoke Exposure: Current Smokeless Tobacco: Never Tobacco Cessation:Ready to Q uit: Not Asked; Counseling Given: Not Answered Alcohol Use Standard Drinks/Week Comments No 0 [...] is lower risk 7 03/02/2024 Data from: https://www.neighborhoodatlas.medicine.[facility].edu/. Last address used for calculation spring03/02/2024 Comments No Sex and Gender Information Value Date Recorded Sex Assigned at Not on file Legal Sex Female 7:29 AM EST Gender Identity Not on file Sexual Orientation Not on file Last Filed Vital Signs Vital Sign Reading Time Taken Comments Blood Pressure 147/79 12/25/2024 10:45 AM EDT Pulse 80 12/25/2024 10:45 AM EDT Temperature 36.7 C (98 F) 12/25/2024 10:45 AM EDT Respiratory Rate 16 11/24/2024 2:00 PM EDT Oxygen Saturation 100% 12/25/2024 10:45 AM EDT Inhaled Oxygen Concentration - - Weight 69.4 kg (153 lb) 01/14/2025 1:21 PM EDT Height 163.8 cm (5' 4.49 ) 01/14/2025 1:21 PM ED T Body Mass Index 25.87 01/14/2025 1:21 PM EDT Plan of Treatment Upcoming Encounters Date Type Department Care Team ( Contact Info) Description 01/12/2025 11:59 PM EDT Anesthesia Event [facility] [address] [place] [address] Sisi Escobar, MATCHER LEATHER PARTS.[address] [address] 01/22/2025 3:40 PM EDT Office Visit Family Medicine [place] [address] [place] [address] Mary Briseno PA-C [address] [facility] [place] [address] 3 month follow up 01/26/2025 10:00 AM EDT Appointment [facility] [place] [address] [facility] [address] Perry Connell Jr., [address] [facility] [address] [place] [id number] dieabetic: EGD DIAGNOSTIC/COLONOSC OPY DIAGNOSTIC 02/01/2025 3:15 PM EDT Office Visit [facility] [address] [place] [place] [address] 3 month MAYANK/BRM with lab 02/01/2025 3:40 PM EDT Visit (SP) Office Hematology/Oncolog y [address] [facility] [place] [address] Kal Kaur MD [address] [place] [address] [place] [address] 3 month MAYANK/BRM with lab 02/02/2025 4:30 PM EDT Office Visit [facility] [address] [facility] [place] [address] Pa Leija, DPSalud [address] [facility] [place] [address] RFC and FU for Pain 03/22/2025 1:30 PM EDT Office Visit Endocrinology [address] [facility] [place] [address] Monae Delgado, MATCHER LEATHER PARTS.DIRECTOR PART [address] [facility] [place] [address] Return in about 3 months (around 02/24/2025). 08/11/2025 2:40 PM EST Office Visit Rheumatology [address] [place] [address] Vineet Peñaloza [place] [address] [facility] [place] [address] 8 month follow up 02/11/2026 10:00 AM EDT Office Visit Obstetrics/Gynecol ogy [address] [place] [address] [place] [address] [place] [address] new annual requested RS Health Maintenance Due Date Last Done Comments Shingrix Vaccine (1 of 2) 1977 Pneumococcal Vaccine: 50+ (2 of 2 - PCV) 03/29/1999 03/29/1998 CT Colonography 2003 Cologuard (FIT-DNA) 2003 Fecal Occult Blood 2003 Sigmoidoscopy 2003 RSV Vaccine (1 - Risk 60-74 years 1-dose series) 2018 Cervical Cancer Screening 02/22/20222020, 02/22/2021, 10/03/2015, Additional history exists Dilated Retinal Exam 04/09/2023 04/09/2022, 11/09/2019, 01/27/2019, Additional history exists DTaP,Tdap,Td Vaccine (3 - Td or Tdap) 02/18/2024 02/17/2014, 07/01/2011 Advance Directive Discussion 06/10/2024 Medicare Advantage Annual Wellness Visit 06/10/2024 04/03/2024 Bone Density Screening 09/11/2024 09/11/2022 LDL Cholesterol 02/24/2025 02/25/2024, 02/08, 11/13/2021, Additional history exists Urine Albumin:Creatinine Ratio 02/24/2025 0 02/25/2024, 02/20/2023, 11/13/2021, Additional history exists Lung Cancer Screening 03/02/2025 03/02/2024 , 10/03/2023, 04/11/2023, Additional history exists Anxiety Screening 04/03/2025 04/03/2024, 04/03/2024 Depression Screening 04/03/2025 04/03/2024, 04/03/20 24 Mammogram Screening 04/23/2025 04/23/2024, 06/29/2015, 06/28/2014, Additional history exists HbA1C 05/26/2025 11/24/2024, 06/10, 02/25/2024, Additional history exists Annual PCP Team Chronic Dise ase Visit 10/20/2025 10/20/2024, 03/07/2020, 01/26/2019 Diabetic Foot Exam 12/01/2025 12/01/2024, 1 06/16/2018, 04/02/2019, Additional history exists Colonoscopy 05/28/2027 05/28/2022, 06/10/2007 Colorectal Cancer Screening 05/28/2027 Hepatitis A Vaccine Completed 12/02/2006, 07/01/2006, 05/31/2006 Hepatitis B Vaccine Completed 12/02/2006, 07/01/2006, 05/31/2006 Influenza Vaccine Discontinued 03/25/2018, , 03/16/2014, Additional history exists Hepatitis C Screening Completed 07/06/2024 , 06/25/2024, 07/09/2023, Additional history exists Medical Devices Implanted Type Area Court Assistant Device Identifier Shelf Expiration Date Model / Serial / Lot Bone Bone Left: Bone - Hip Plate Lcp Stainless Steel 58mm Bone 6x3 Hole 2 Column Variable Angle 2.4mm - [id number] Implanted:Qty: 1 on 08/03/2022 at [facility] Plate Right: Bone - Radius [employer]UMA [id number] / / Screw Lcp 2.7mm T8 Stainless Steel 16mm Bone Stardrive Self Tap Modular - [id number] Implanted:Qty: 1 on 08/03/2022 at [facility] Screw Right: Bone - Radius [employer] [place] 202.876 / / Screw Lcp 2.4mm T8 Stainless Steel 16mm Bone Variable Angle Lock Self Tap - [id number] Implanted:Qty: 3 on 08/03/2022 at [facility] Screw Right: Bone - Radius [employer] [place] 02.210.116 / / Screw Lcp 2.4mm T8 Stainless Steel 14mm Bone Variable Angle Lock Self Tap - [id number] Implanted:Qty: 1 on 08/03/2022 at [facility] Screw Right: Bone - Radius [employer]UMA 210.114 / / Screw Lcp 2.7mm T8 Stainless Steel 14mm Bone Stardrive Self Tap Modular - [id number] Implanted:Qty: 2 on 08/03/2022 at [facility] Screw Right: Bone - Radius [employer] [place] 202.874 / / Screw Lcp 2.4mm T8 Stainless Steel 18mm Bone Variable Angle Lock Self Tap - [id number] Implanted:Qty: 2 on 08/03/2022 at [facility] Screw Right: Bone - Radius [employer] [place] 210.118 / / Screw Lcp 2.4mm T8 Stainless Steel 22mm Bone Self Tap Self Retaining - [id number] Implanted:Qty: 1 on 08/03/2022 at [facility] Screw Right: Bone - Radius [employer] [place] 201.772 / / Procedures Procedure Name Priority Date/Time Associated Diagnosis Comments PT ED PATIENT INFORMATION 11/25/2024 HEMOGLOBIN A1C (POC) Routine 11/24/2024 2:05 PM EDT MORELIA DIAG W DUANE BILATERAL Routine 04/23/2024 2:[address] CHEST W IVCON Routine 03/02/2024 10:5 7 AM EDT Gastrointestinal stromal tumor (GIST) of small intestine (HCC) ALBUMIN/CREATININE RATIO, URINE Routine 02/25/2024 1:36 PM EDT Medication management LIPID PANEL, FASTING Routine 02/25/2024 12:30 PM EDT Medication management DXA-AXIAL SKELETON Routine 09/11/2022 9: 08 AM EDT Screening for osteoporosis Other closed fracture of distal end of right radius with routine healing, subsequent encounter COLONOSCOPY DIAGNOSTIC Routine 05/28/2022 1:26 PM EST Chronic diarrhea Rectal pain PAP FLUID CERVICAL SCREENING Routine 02/22/2021 12:13 PM EDT Screening for cervical cancer from Last 3 Months or Most Recently Relevant to Health Maintenance Results * PT ED PATIENT INFORMATION (11/25/2024) 11/25/2024 Narrative AIDA - 12/26/2024 Provider LEONCIO TAYLOR your patient CORAL CALLES has not started their Aida program, time has . Aida program: PATIENT SAFETY INSTRUCTIONS FOR HEALTHCARE SETTINGS Perry Connell Jr., DO AIAD Final Resu lt AIDA * (ABNORMAL) HEMOGLOBIN A1C (POC) (11/24/2024 2:05 PM EDT) Hemoglobin A1C (POCT) 6.5(A) 4.3 - 5.6 % [facility] Comment: Location:[facility], [address] [place] [address], [facility] Point of care (POC) Hemoglobin A1c (HGBA1C) testing is intended to assess glucose control and provide a management tool for patients known to have diabetes and their healthcare providers. Target HGBA1C levels may depend on specific clinical circumstances. POC HGBA1C is not intended for use as a diagnostic or screening test; laboratory-based testing should be used for diagnostic purposes. The following information is supplemental and may not be applicable to specific diabetes management situations: The POC device lever operator provides a normal range of 4.2% to 6.5% for the HGBA1C POC test. However, the [place] [employer] guidelines indicate that patients with HGBA1C in the range of 5.7% to 6.4% are at increased risk for development of diabetes and that intervention by lifestyle modification may be beneficial. A HGBA1C level greater than or equal to 6.5% is considered diagnostic of diabetes, pending confirmatory testing. Use of HGBA1C testing to evaluate glucose control may not be appropriate for patients with hemoglobin variants or other conditions (e.g. anemia) that alter red blood cell lifespan. 11/24/2024 2:05 PM EDT Monae Delgado MATCHER LEATHER PARTS.DIRECTOR PART POC TESTING Final Result [facility]INT OF CARE [facility] [address] [place], [place] * M[place]ELIA MIGUEG W DUANE BILATERAL (04/23/2024 2:28 PM EST) Anatomical Region Laterality Modality Breast Bilateral Mammography 04/23/2024 2:28 PM EST Impressions 04/23/2024 3:22 PM EST IMPRESSION: Finding 1: Postsurgical changes upper central left breast without a definitive correlate to the FDG PET/CT abnormality in the superior left breast. Further evaluation with breast MRI is recommended given the patient's history of breast carcinoma. A secure TeamLINKS message was sent to the ordering provider with recommendations for the breast MRI. In addition, the patient was instructed to schedule the recommended surgical consultation as she left today. Breast MRI is recommended. Finding 2: No suspicious sonographic or mammographic correlate to the spontaneous nonbloody left nipple discharge. Surgical consultation is recommended given the personal history of breast cancer. BI-RADS Category 0: Incomplete: Needs Additional Imaging Evaluation Interpreting Radiologist: Gold Chatman M.D. Electronically signed on: 04/23/2024 Merchandising Specialist: CHIQUIS Transcriloretta Date/Time: Apr 23 2024 1:58P Dictated by : GOLD CHATMAN MD This examination was interpreted and the report reviewed and electronically signed by: GOLD CHATMAN MD on Apr 23 2024 3:16PM EST Narrative 04/23/2024 3:22 PM EST * * *Final Report* * * DATE OF EXAM: Apr 23 2024 2:28PM [facility] 0627 - MORELIA DIAG W DUANE DOLLY / PROCEDURE REASON: change to duane * * * * Physician Interpretation * * * * RESULT: [facility] [id number] [facility] [place] [address] HISTORY: Patient is 63 years old and is seen for diagnostic evaluation of is asymptomatic in the right breast and area of clinical concern in the left breast. The patient has a history of GI cancer in 2018 and left breast cancer in 2008. COMPARISON STUDIES: The present examination has been compared to a prior imaging study dated 04/07/2024 (other). MAMMOGRAM TECHNIQUE: The study was acquired using full field digital technology and interpreted from soft copy. Digital Breast Tomosynthesis (DBT) images were obtained and used to assist in the interpretation of this examination. Computer-aided detection was utilized by the radiologist in the interpretation of this examination. MAMMOGRAM FINDINGS: The breasts are heterogeneously dense, which may obscure small masses. Finding 1: There are no suspicious mammographic findings to correspond with the area of concern in the superior left breast. Finding 2: There are no suspicious mammographic findings to correspond with the non-bloody nipple discharge in the left breast. Finding 3: There is a biopsy marker and post-operative changes in the left breast. Finding 4: There are post-operative changes in the right axilla. ULTRASOUND TECHNIQUE: Targeted ultrasound of the indicated area was performed. Jansen scale images were saved. ULTRASOUND FINDINGS: Finding 1: There are postsurgical changes in the upper central left breast without a definitive sonographic correlate to the PET/CT abnormality. Finding 2: No suspicious solid or cystic masses to correspond with the spontaneous nonbloody left nipple discharge. Procedure Note Provider, [facility] [place] - 04/23/2024 * * *Final Report* * * DATE OF EXAM: Apr 23 2024 2:28PM [facility] 0627 - MORELIA ALBERTINA ALBERTO / PROCEDURE REASON: change to duane * * * * Physician Interpretation * * * * RESULT: [facility] [id number] [facility] [place] [address] HISTORY: Patient is 63 years old and is seen for diagnostic evaluation of is asymptomatic in the right breast and area of clinical concern in the left breast. The patient has a history of GI cancer in 2018 and left breast cancer in 2008. COMPARISON STUDIES: The present examination has been compared to a prior imaging study dated 04/07/2024 (other). MAMMOGRAM TECHNIQUE: The study was acquired using full field digital technology and interpreted from soft copy. Digital Breast Tomosynthesis (DBT) images were obtained and used to assist in the interpretation of this examination. Computer-aided detection was utilized by the radiologist in the interpretation of this examination. MAMMOGRAM FINDINGS: The breasts are heterogeneously dense, which may obscure small masses. Finding 1: There are no suspicious mammographic findings to correspond with the area of concern in the superior left breast. Finding 2: There are no suspicious mammographic findings to correspond with the non-bloody nipple discharge in the left breast. Finding 3: There is a biopsy marker and post-operative changes in the left breast. Finding 4: There are post-operative changes in the right axilla. ULTRASOUND TECHNIQUE: Targeted ultrasound of the indicated area was performed. Jansen scale images were saved. ULTRASOUND FINDINGS: Finding 1: There are postsurgical changes in the upper central left breast without a definitive sonographic correlate to the PET/CT abnormality. Finding 2: No suspicious solid or cystic masses to correspond with the spontaneous nonbloody left nipple discharge. IMPRESSION IMPRESSION: Finding 1: Postsurgical changes upper central left breast without a definitive correlate to the FDG PET/CT abnormality in the superior left breast. Further evaluation with breast MRI is recommended given the patient's history of breast carcinoma. A secure TeamLINKS message was sent to the ordering provider with recommendations for the breast MRI. In addition, the patient was instructed to schedule the recommended surgical consultation as she left today. Breast MRI is recommended. Finding 2: No suspicious sonographic or mammographic correlate to the spontaneous nonbloody left nipple discharge. Surgical consultation is recommended given the personal history of breast cancer. BI-RADS Category 0: Incomplete: Needs Additional Imaging Evaluation Interpreting Radiologist: Gold Chatman M.D. Electronically signed on: 04/23/2024 Merchandising Specialist: CHIQUIS Transcribe Date/Time: Apr 23 2024 1:58P Dictated by : GOLD CHATMAN MD This examination was interpreted and the report reviewed and electronically signed by: GOLD CHATMAN MD on Apr 23 2024 3:16PM EST us Randall Stearns MD [facility] Final Re sult * (ABNORMAL) CT CHEST W IVCON (03/02/2024 10:57 AM EDT) Radiology Result ACTIONABLE (Actionabl e) DIVISION OF RADIOLOGY Comment: This report contains an incidental or actionable finding. This finding may be a new finding separate from the reason your provider ordered the imaging test or it may be an already known finding that needs additional or continued follow-up. Because of this incidental or actionable finding, you may need another test (imaging or a different type of test). Please contact your provider for the next steps. Anatomical Region Laterality Modality Chest Nuclear Medicine , Nuclear Medicine 03/02/2024 10:5 6 AM EDT Impressions 03/02/2024 2:57 PM EDT IMPRESSION: 1. Multiple solid and groundglass pulmonary nodules as described above. These are stable with the exception of a 4 mm nodule in the posterior right upper lobe which appears increased in size when compared to the prior exam. Therefore, would advise a short-term follow-up chest CT without contrast in 3 months. ACTIONABLE RESULT: FOLLOW-UP Acuity: Actionable Findings: Thoracic-Lung nodules Routing code: [id number] Recommendation: CT Chest WO IVCON Time Frame: 1-3 months COMMUNICATION: Results will be communicated with the ordering provider via RMI staff message or phone message by Imaging Support Services within 2 business days of report finalization. --END OF FINDING-- Algorithms for management of incidental imaging findings can be found on the [facility] Intranet Sharepoint site at: [email or web address]%20Findi ngs%[email or web address].[email or web address] Transcribe Date/Time: Mar 02 2024 2:18P Dictated by: PA PRYOR MD This examination was interpreted and the report reviewed and electronically signed by: PA PRYOR MD on Mar 02 2024 2:55PM EST Thank you for allowing us to participate in the care of your patient. Should there be any questions regarding this interpretation, please call [phone]. If you are unable to reach us at the number above, please feel free to contact [facility]iology at [phone]. 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 Technique: Spiral CT acquisition of the chest from the thoracic inlet to the upper abdomen following IV contrast. MQ: CTCW_6 Contrast: 100 mL Omnipaque [address] Radiation dose: Integrated Dose-length product (DLP) for this visit = 776 mGy*cm CT Dose Reduction Employed: Automated exposure control (AEC) Comparison: Chest CT with contrast from 10/03/2023 RESULT: Limitations: None. Lines, tubes, and devices: None. Lung parenchyma and airways: Stable mild subpleural reticulation along the anterior left upper lobe, likely due to post treatment change. Pulmonary nodules are again noted on series 4. For example, -Stable 6 mm solid nodule in the posterior left upper lobe on slice 61. -Stable 5 mm solid nodule in the anterior right upper lobe on slice 43. -Stable 3 mm solid nodule along the minor fissure on slice 88. -Stable 8 mm groundglass opacity in the anterior left upper lobe on slice 54. -Stable 4 mm groundglass opacity in the anterior left upper lobe on slice 56. -4 mm solid nodule in the posterior right upper lobe which appears more prominent or increased in size when compared to the prior exam. Pleural space: Mild subpleural thickening on the anterior left upper lobe, likely due to posttreatment change. Lower neck, lymph nodes, and mediastinum: No suspicious axillary lymphadenopathy. Stable nodule in the anterior/superior mediastinum which measures 6 x 5 mm on slice 73 of series 3. Although nonspecific in appearance, this has been present on multiple prior exams. Would advise continued attention on follow-up studies. Surgical clips in the right axilla. Heart, pericardium, and thoracic vessels: No pericardial effusion. Mild coronary artery calcification. Bones and soft tissues: Stable inferior endplate compression deformity of the T12 vertebral body with approximately 25% loss vertebral body height. Chest wall is unremarkable. Upper abdomen: A CT of the abdomen and pelvis was performed and will be reported separately. Localizer images: Left total hip arthroplasty. 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 Technique: Spiral CT acquisition of the chest from the thoracic inlet to the upper abdomen following IV contrast. MQ: CTCW_6 Contrast: 100 mL Omnipaque [address] Radiation dose: Integrated Dose-length product (DLP) for this visit = 776 mGy*cm CT Dose Reduction Employed: Automated exposure control (AEC) Comparison: Chest CT with contrast from 10/03/2023 RESULT: Limitations: None. Lines, tubes, and devices: None. Lung parenchyma and airways: Stable mild subpleural reticulation along the anterior left upper lobe, likely due to post treatment change. Pulmonary nodules are again noted on series 4. For example, -Stable 6 mm solid nodule in the posterior left upper lobe on slice 61. -Stable 5 mm solid nodule in the anterior right upper lobe on slice 43. -Stable 3 mm solid nodule along the minor fissure on slice 88. -Stable 8 mm groundglass opacity in the anterior left upper lobe on slice 54. -Stable 4 mm groundglass opacity in the anterior left upper lobe on slice 56. -4 mm solid nodule in the posterior right upper lobe which appears more prominent or increased in size when compared to the prior exam. Pleural space: Mild subpleural thickening on the anterior left upper lobe, likely due to posttreatment change. Lower neck, lymph nodes, and mediastinum: No suspicious axillary lymphadenopathy. Stable nodule in the anterior/superior mediastinum which measures 6 x 5 mm on slice 73 of series 3. Although nonspecific in appearance, this has been present on multiple prior exams. Would advise continued attention on follow-up studies. Surgical clips in the right axilla. Heart, pericardium, and thoracic vessels: No pericardial effusion. Mild coronary artery calcification. Bones and soft tissues: Stable inferior endplate compression deformity of the T12 vertebral body with approximately 25% loss vertebral body height. Chest wall is unremarkable. Upper abdomen: A CT of the abdomen and pelvis was performed and will be reported separately. Localizer images: Left total hip arthroplasty. IMPRESSION IMPRESSION: 1. Multiple solid and groundglass pulmonary nodules as described above. These are stable with the exception of a 4 mm nodule in the posterior right upper lobe which appears increased in size when compared to the prior exam. Therefore, would advise a short-term follow-up chest CT without contrast in 3 months. ACTIONABLE RESULT: FOLLOW-UP Acuity: Actionable Findings: Thoracic-Lung nodules Routing code: [id number] Recommendation: CT Chest WO IVCON Time Frame: 1-3 months COMMUNICATION: Results will be communicated with the ordering provider via RMI staff message or phone message by Imaging Support Services within 2 business days of report finalization. --END OF FINDING-- Algorithms for management of incidental imaging findings can be found on the [facility] Intranet Sharepoint site at: [email or web address] ngs%[email or web address] Transcribe Date/Time: Mar 02 2024 2:18P Dictated by: PA PRYOR MD This examination was interpreted and the report reviewed and electronically signed by: PA PRYOR MD on Mar 02 2024 2:55PM EST Thank you for allowing us to participate in the care of your patient. Should there be any questions regarding this interpretation, please call [phone]. If you are unable to reach us at the number above, please feel free to contact [facility] at [phone]. us Randall Stearns MD [facility] Final Re sult * (ABNORMAL) ALBUMIN/CREATININE RATIO, URINE (02/25/2024 1:36 PM EDT) Creatinine, Ur Random (UCRR) 186.0 20.0 - 300.0 mg/dL 02/26/2024 10:56 AM EDT [facility] Albumin, Urine Random 64.9 mg/L 02/26/2024 10:56 AM EDT [facility] Albumin/Creat Ratio 35(H) <30 mg/g 02/26/2024 10:56 AM EDT [facility] Comment: Adult Male and Female Nephrotic Criteria: <30 mg/g is considered normal to mildly increased 30-300 mg/g is considered moderately increased >300 mg/g is considered severely increased KDIGO. (2013). KDIGO 2012 Clinical Practice Guideline for the Evaluation and Management of Chronic Kidney Disease. Official Journal of the International Society of Nephrology, 3(1), 1-150. Urine URINE SPECIMEN / Unknown Non Blood / Unknown 02/25/2024 1:36 PM EDT 02/25/2024 1:36 PM EDT us Mary Briseno PA-C LABORATORY Final Result [facility] [address] [place] [address], * LIPID PANEL BASIC (02/25/2024 12:30 PM EDT) Cholesterol, Total 191 <200 mg/dL 02/25/2024 8:41 PM EDT [facility] Comment: <200 mg/dL, Desirable 200-239 mg/dL, Borderline high >239 mg/dL, High Triglyceride 52 <150 mg/dL 02/25/2024 8:41 PM EDT [facility] Comment: <150 mg/dL, Normal 150-199 mg/dL, Borderline high 200-499 mg/dL, High >499 mg/dL, Very high HDL Cholesterol 89 >39 mg/dL 8:41 PM EDT [facility] Comment: 40-59 mg/dL, Acceptable >59 mg/dL, High: Negative risk factor for coronary heart disease <40 mg/dL, Low: Positive risk factor for coronary heart disease Non HDL Cholesterol 102 <130 mg/dL 02/25/2024 8:41 PM EDT [facility] Comment: <130 mg/dL, Optimal 130-159 mg/dL, Near optimal/above optimal 160-189 mg/dL, Borderline high 190-219 mg/dL, High >219 mg/dL, Very high Secondary prevention optimal non HDL Cholesterol levels are recommended to be <100 mg/dL Fasting Time 12 hrs 02/25/2024 8:41 PM EDT [facility] VLDL Cholesterol 10 <30 mg/dL 02/25/20 24 8:41 PM EDT [facility] TC:HDL Ratio 2.15 <5.10 02/25/2024 8:41 PM EDT [facility] LDL Cholesterol, Calculated 92 <100 mg/dL 02/25/2024 8:41 PM EDT [facility] Comment: <100 mg/dL, Optimal 100-129 mg/dL, Near optimal/above optimal 130-159 mg/dL, Borderline high 160-189 mg/dL, High >189 mg/dL, Very high Secondary prevention optimal LDL Cholesterol levels are recommended to be < 70 mg/dL LDL:HDL Ratio 1.03 <2.54 02/25/2024 8:41 PM EDT [facility] Comment: Reference: 1. National Cholesterol Education Program ATP III Guideline At-A-Glance Quick Desk Reference: National Heart, Lung, and Blood [place]. National Institutes of Health. 2001: NIH Publication No. 01-3305. 2. An International Atherosclerosis Society position paper: global recommendations for the management of dyslipidemia: executive summary, Atherosclerosis. 2014: 232(2):410-413. Blood BLOOD SPECIMEN / Unknown Venipuncture / Unknown 02/25/2024 12:30 PM EDT 02/25/2024 12:30 PM EDT Mary Briseno PA-C LABORATORY Final Result [facility] [address] [address], [facility] [address] [place] [address], * DXA-AXIAL SKELETON (09/11/2022 9:08 AM EDT) LOWEST T-SCORE -3.7 DIVIS ION OF RADIOLOGY Anatomical Region Laterality Modality Other 09/11/2022 9:08 AM EDT Impressions 09/17/2022 11:34 AM EDT IMPRESSION: THE LOWEST T-SCORE IS -3.7 IN THE RIGHT HIP 1) DIAGNOSIS (based on BMD alone): OSTEOPOROSIS Note that SEVERE OSTEOPOROSIS may be clinically diagnosed when a patient has a low bone density and a prior fragility fracture. Clinical correlation by the ordering physician is necessary to confirm this diagnosis. The lowest T-score is used for diagnosis/impression Z-scores will be reported if <-1.0 or if > or = to+3.0 Note that if the patient's prior bone density test was consistent with osteoporosis, the clinical diagnosis remains Osteoporosis. Note that regardless of bone mineral density measurement, a patient may be clinically diagnosed with osteoporosis if they have had a prior fragility fracture. Caution: Medical conditions other than osteoporosis may cause low bone density, such as osteomalacia or renal osteodystrophy. Clinical correlation is necessary. 2) FRACTURE RISK (based on BMD alone): INCREASED Caution: Fracture risk may be increased independent of BMD in patients with corticosteroid use, age greater than 65 years, or a history of prior fragility fracture. RECOMMENDATIONS: Clinical correlation by the ordering physician is necessary to assess response to current pharmacologic therapy. Note that some medical conditions may cause low bone density, such as osteomalacia, vitamin D deficiency, multiple myeloma, renal osteodystrophy, hyperparathyroidism, hypogonadism, certain endocrinologic conditions, inflammatory arthropathies, gastrointestinal diseases and malabsorption, and certain medications such as, but not limited to, systemic steroids, anticonvulsants, aromatase inhibitors, clinical correlation is necessary. Evaluation of vitamin D status is recommended All patients should receive the recommended daily allowance of calcium and vitamin D, as recommended by the NOF and clinically indicated. Weight bearing exercises and strength training should be considered. Cessation of smoking and moderation of intake of alcohol, caffeine and carbonated beverages are recommended (for additional information please refer to NOF website at www.nof.org). Evaluation for secondary causes of bone loss is recommended in patients with a Z-score of less than -1.5 (see web-site for more details). Patients who have had a height loss of 1.5 inches or more since their peak height (tallest height), should be considered for evaluation of vertebral compression fractures by x-ray of the thoracic(with swimmers views) and lumbar spine. RECOMMENDATIONS FOR PHARMACOLOGIC THERAPY: National Osteoporosis Foundation (NOF) treatment recommendations (2008) Postmenopausal women and men age 50 and older presenting with the following should be treated: A hip or vertebral (clinical or morphometric) fracture T-score less than or equal to -2.5 at the femoral neck, total hip or spine after appropriate evaluation to exclude secondary causes Low bone mass (T-score between -1.0 and -2.5 at the femoral neck, total hip or spine) and 10 year probability of hip fracture greater than or equal to 3% or a 10 year probability of any major osteoporosis-related fracture greater than or equal to 20% based on the [place] adapted WHO algorithm for FRAX(TM): www.amauri.ac.uk/FRAX/tool.jsp or The WHO Fracture Risk Assessment Tool at www.NOF.org PLEASE NOTE: THE DXA SCANNER USED FOR THIS PATIENT IS LISTED IN THE ABOVE DEMOGRAPHICS. THE TYPE OF SCANNER MUST BE ENTERED IN THE FRAX(TM) CALCULATOR TO CORRECT FOR DXA SCANNER VARIABILITY. PLEASE NOTE FRAX(TM) + Does not apply to premenopausal patients + DOES NOT APPLY TO TREATED OR PREVIOUSLY TREATED PATIENTS within past 2 years, please review updates from website listed above. ALL RECOMMENDATIONS AND CALCULATIONS ARE TO BE CONSIDERED GUIDELINES AND SHOULD NOT REPLACE SOUND CLINICAL JUDGMENT - Adult patients being treated with corticosteroids should be protected from bone loss and fracture risk (see ACR guidelines), and bone density should be repeated at 1 year. Pharmacologic therapy may be necessary for consideration in high risk patients for the prevention and treatment of steroid induced bone loss and fragility fractures. Additional information on the new [place] [employer]umat[employer] 2010 Recommendations for the Prevention and Treatment of Glucocorticoid-Induced Osteoporosis are available through the Journal of Arthritis Care and Research Vol. 62, No.11, April 2010, pp 9398-4221. These changes may be revised, please refer to www.rheumatology.org for updated recommendations. Follow-up in 2 years or as clinically indicated. Patients that are taking corticosteroids, are transplant recipients or have hyperparathyroidism should have annual follow-up. Follow-up scans should always be done on the same machine for accurate comparison. FOR MORE INFORMATION: [facility] Center for Osteoporosis and Metabolic Bone Disease: www.ccf.org/arthritis/osteo National Osteoporosis Foundation: www.nof.org International Society of Clinical Densitometry www.iscd.org Merchandising Specialist: [id number] Transcribe Date/Time: Sep 11 2022 9:09A Dictated by : JEMIMA MENA MD This examination was interpreted and the report reviewed and electronically signed by: JEMIMA MENA MD on Sep 17 2022 11:32AM EST Narrative 09/17/2022 11:34 AM EDT * * *Final Report* * * DATE OF EXAM: Sep 11 2022 9:08AM [facility] 0804 - BD DXA - AXIAL SKELETON / PROCEDURE REASON: multiple diagnoses * * * * Physician Interpretation * * * * EXAMINATION: DXA BONE DENSITOMETRY BD DXA - AXIAL SKELETON PATIENT DEMOGRAPHICS: Age: 62 years, Race: , Gender: Female SCANNER INFORMATION: DXA Model: [employer] [id number] SITE SCANNED: Lumbar spine and right hip Date Scanned: 09/11/2022 9:08 AM CLINICAL HISTORY: SCREENING Screening for osteoporosis Other closed fracture of distal end of right radius with routine healing, subsequent encounter . RISK FACTORS FOR OSTEOPOROSIS AND ASSOCIATED FRACTURES REPORTED BY THIS PATIENT: Postmenopausal female Family history of osteoporosis in a first degree relative Parent with a history of HIP fracture History of fractures, hip, wrist (clinical correlation needed to see if this was a fragility fracture) Current and correction smoker Vitamin D deficiency Kidney stones Patient reported-rheumatoid arthritis Diabetes Breast cancer Past therapy with tamoxifen during premenopause Past therapy with systemic steroid therapy that exceeded 3 months lifetime CURRENT THERAPY: Vitamin D, Multivitamin and Fosamax/alendronate TECHNICAL LIMITATIONS: Degenerative disease of the spine This is first bone density test on this machine. A previous bone density may have been performed on a different DXA machine(new, updated model OR different location), thus no comparison can be made with past studies. Left hip(s) could not be scanned due to prior surgery RESULTS: Lumbar spine (L1-L4): 0.920 g/cm2, T-score -1.2, Right Femoral Neck: 0.437 g/cm2, T-score -3.7, Z-score -2.3 Right Total Hip: 0.553 g/cm2, T-score -3.2, Z-score -2.0 Procedure Note Provider, [facility] [place] - 09/17/2022 * * *Final Report* * * DATE OF EXAM: Sep 11 2022 9:08AM [facility] 0804 - BD DXA - AXIAL SKELETON / PROCEDURE REASON: multiple diagnoses * * * * Physician Interpretation * * * * EXAMINATION: DXA BONE DENSITOMETRY BD DXA - AXIAL SKELETON PATIENT DEMOGRAPHICS: Age: 62 years, Race: , Gender: Female SCANNER INFORMATION: DXA Model: [employer] [id number] SITE SCANNED: Lumbar spine and right hip Date Scanned: 09/11/2022 9:08 AM CLINICAL HISTORY: SCREENING Screening for osteoporosis Other closed fracture of distal end of right radius with routine healing, subsequent encounter . RISK FACTORS FOR OSTEOPOROSIS AND ASSOCIATED FRACTURES REPORTED BY THIS PATIENT: Postmenopausal female Family history of osteoporosis in a first degree relative Parent with a history of HIP fracture History of fractures, hip, wrist (clinical correlation needed to see if this was a fragility fracture) Current and correction smoker Vitamin D deficiency Kidney stones Patient reported-rheumatoid arthritis Diabetes Breast cancer Past therapy with tamoxifen during premenopause Past therapy with systemic steroid therapy that exceeded 3 monthslifetime CURRENT THERAPY: Vitamin D, Multivitamin and Fosamax/alendronate TECHNICAL LIMITATIONS: Degenerative disease of the spine This is first bone density test on this machine. A previous bone density may have been performed on a different DXA machine(new, updated model OR different location), thus no comparison can be made with past studies. Left hip(s) could not be scanned due to prior surgery RESULTS: Lumbar spine (L1-L4): 0.920 g/cm2, T-score -1.2, Right Femoral Neck: 0.437 g/cm2, T-score -3.7, Z-score -2.3 Right Total Hip: 0.553 g/cm2, T-score -3.2, Z-score -2.0 IMPRESSION IMPRESSION: THE LOWEST T-SCORE IS -3.7 IN THE RIGHT HIP 1) DIAGNOSIS (based on BMD alone): OSTEOPOROSIS Note that SEVERE OSTEOPOROSIS may be clinically diagnosed when a patient has a low bone density and a prior fragility fracture. Clinical correlation by the ordering physician is necessary to confirm this diagnosis. The lowest T-score is used for diagnosis/impression Z-scores will be reported if <-1.0 or if > or = to+3.0 Note that if the patient's prior bone density test was consistent with osteoporosis, the clinical diagnosis remains Osteoporosis. Note that regardless of bone mineral density measurement, a patient may be clinically diagnosed with osteoporosis if they have had a prior fragility fracture. Caution: Medical conditions other than osteoporosis may cause low bone density, such as osteomalacia or renal osteodystrophy. Clinical correlation is necessary. 2) FRACTURE RISK (based on BMD alone): INCREASED Caution: Fracture risk may be increased independent of BMD in patients with corticosteroid use, age greater than 65 years, or a history of prior fragility fracture. RECOMMENDATIONS: Clinical correlation by the ordering physician is necessary to assess response to current pharmacologic therapy. Note that some medical conditions may cause low bone density, such as osteomalacia, vitamin D deficiency, multiple myeloma, renal osteodystrophy, hyperparathyroidism, hypogonadism, certain endocrinologic conditions, inflammatory arthropathies, gastrointestinal diseases and malabsorption, and certain medications such as, but not limited to, systemic steroids, anticonvulsants, aromatase inhibitors, clinical correlation is necessary. Evaluation of vitamin D status is recommended All patients should receive the recommended daily allowance of calcium and vitamin D, as recommended by the NOF and clinically indicated. Weight bearing exercises and strength training should be considered. Cessation of smoking and moderation of intake of alcohol, caffeine and carbonated beverages are recommended (for additional information please refer to NOF website at www.nof.org). Evaluation for secondary causes of bone loss is recommended in patients with a Z-score of less than -1.5 (see web-site for more details). Patients who have had a height loss of 1.5 inches or more since their peak height (tallest height), should be considered for evaluation of vertebral compression fractures by x-ray of the thoracic(with swimmers views) and lumbar spine. RECOMMENDATIONS FOR PHARMACOLOGIC THERAPY: National Osteoporosis Foundation (NOF) treatment recommendations (2008) Postmenopausal women and men age 50 and older presenting with the following should be treated: A hip or vertebral (clinical or morphometric) fracture T-score less than or equal to -2.5 at the femoral neck, total hip or spine after appropriate evaluation to exclude secondary causes Low bone mass (T-score between -1.0 and -2.5 at the femoral neck, total hip or spine) and 10 year probability of hip fracture greater than or equal to 3% or a 10 year probability of any major osteoporosis-related fracture greater than or equal to 20% based on the [place].- adapted WHO algorithm for FRAX(TM): www.amauri.ac.uk/FRAX/tool.jsp or The WHO Fracture Risk Assessment Tool at www.NOF.org PLEASE NOTE: THE DXA SCANNER USED FOR THIS PATIENT IS LISTED IN THE ABOVE DEMOGRAPHICS. THE TYPE OF SCANNER MUST BE ENTERED IN THE FRAX(TM) CALCULATOR TO CORRECT FOR DXA SCANNER VARIABILITY. PLEASE NOTE FRAX(TM) + Does not apply to premenopausal patients + DOES NOT APPLY TO TREATED OR PREVIOUSLY TREATED PATIENTS within past 2 years, please review updates from website listed above. ALL RECOMMENDATIONS AND CALCULATIONS ARE TO BE CONSIDERED GUIDELINES AND SHOULD NOT REPLACE SOUND CLINICAL JUDGMENT - Adult patients being treated with corticosteroids should be protected from bone loss and fracture risk (see ACR guidelines), and bone density should be repeated at 1 year. Pharmacologic therapy may be necessary for consideration in high risk patients for the prevention and treatment of steroid induced bone loss and fragility fractures. Additional information on the new [place] [employer] 2010 Recommendations for the Prevention and Treatment of Glucocorticoid-Induced Osteoporosis are available through the Journal of Arthritis Care and Research Vol. 62, No.11, April 2010, pp 8206-7090. These changes may be revised, please refer to www.rheumatology.org for updated recommendations. Follow-up in 2 years or as clinically indicated. Patients that are taking corticosteroids, are transplant recipients or have hyperparathyroidism should have annual follow-up. Follow-up scans should always be done on the same machine for accurate comparison. FOR MORE INFORMATION: [facility] Center for Osteoporosis and Metabolic Bone Disease: www.ccf.org/arthritis/osteo National Osteoporosis Foundation: www.nof.org International Society of Clinical Densitometry www.iscd.org Merchandising Specialist: [id number] Transcribe Date/Time: Sep 11 2022 9:09A Dictated by : JEMIMA MENA MD This examination was interpreted and the report reviewed and electronically signed by: JEMIMA MENA MD on Sep 17 2022 11:32AM EST Mary SAVAGE Final Result * COLONOSCOPY DIAGNOSTIC (05/28/2022 1:26 PM EST) Anatomical Region Laterality Modality Other 05/28/2022 1:26 PM EST Narrative 05/28/2022 6:49 PM EST [facility] Gastrointestinal Endoscopy Patient Name: Coral Calles Procedure Date: 05/28/2022 1:26 PM Date of : 1960 Admit Type: Outpatient Age: 61 Room: [place] [address] Gender: Female Note Status: Finalized Attending MD: Rebekah Kothari MD Procedure: Colonoscopy Indications: Chronic diarrhea, Rectal pain Providers: Rebekah Kothari MD Patient Profile: This is a 61 year old female. Refer to note in patient chart for documentation of history and physical. Last Colonoscopy: date unknown. Unable to locate last colonoscopy report. Referring Physician: Rebekah Kothari MD (Referring MD) Medicines: Monitored Anesthesia Care Complications: No immediate complications. Requesting Provider: Procedure: Pre-Anesthesia Assessment: - Prior to the procedure, a History and Physical was performed, and patient medications, allergies and sensitivities were reviewed. The patient's tolerance of previous anesthesia was reviewed. - The risks and benefits of the procedure and the sedation options and risks were discussed with the patient. All questions were answered and informed consent was obtained. - Patient identification and proposed procedure were verified prior to the procedure by the physician, the nurse, the cooky machine operator and the magnetic testing technician. The procedure was verified in the procedure room. - ASA Grade Assessment: II - A patient with mild systemic disease. After I obtained informed consent, the scope was passed under direct vision. Throughout the procedure, the patient's blood pressure, pulse, and oxygen saturations were monitored continuously. The 2867 scope was introduced through the anus and advanced to the terminal ileum, with identification of the appendiceal orifice and IC valve. The colonoscopy was performed without difficulty. The patient tolerated the procedure well. The quality of the bowel preparation was adequate to identify polyps. The ileocecal valve, appendiceal orifice, and rectum were photographed. Scope Withdrawal Time: 0 hours 7 minutes 37 seconds Moderate Sedation: MAC anesthesia was administered by the anesthesia team. Total Procedure Duration: 0 hours 20 minutes 18 seconds Findings: Hemorrhoids were found on perianal exam. Normal mucosa was found in the entire colon. Biopsies for histology were taken with a cold forceps from the entire colon for evaluation of microscopic colitis. A 9 mm polyp was found in the splenic flexure. The polyp was sessile. The polyp was removed with a hot snare. Resection and retrieval were complete. Non-bleeding internal hemorrhoids were found during retroflexion. The hemorrhoids were small. Impression: - Hemorrhoids found on perianal exam. - Normal mucosa in the entire examined colon. Biopsied. - One 9 mm polyp at the splenic flexure, removed with a hot snare. Resected and retrieved. - Non-bleeding internal hemorrhoids. Recommendation: - Discharge patient to home. - Resume previous diet. - Continue present medications. - Await pathology results. - Repeat colonoscopy in 5 years for surveillance. - Patient has a contact number available for emergencies. The signs and symptoms of potential delayed complications were discussed with the patient. Return to normal activities tomorrow. Written discharge instructions were provided to the patient. Procedure Code(s): --- Professional --- 69644, Colonoscopy, flexible; with removal of tumor(s), polyp(s), or other lesion(s) by snare technique 74105, 59, Colonoscopy, flexible; with biopsy, single or multiple Diagnosis Code(s): --- Professional --- K64.8, Other hemorrhoids D12.3, Benign neoplasm of transverse colon (hepatic flexure or splenic flexure) K52.9, Noninfective gastroenteritis and colitis, unspecified K62.89, Other specified diseases of anus and rectum CPT copyright 2020 [employer]. All rights reserved. The codes documented in this report are preliminary and upon invoice coder review may be revised to meet current compliance requirements. Attending Participation: I personally performed the entire procedure. Scope In: 2:16:33 PM Scope Out: 2:36:51 PM MD Rebekah Nguyen MD 05/28/2022 2:45:09 PM This report has been signed electronically by Rebekah Kothari MD Number of Addenda: 0 Note Initiated On: 05/28/2022 1:26 PM Estimated Blood Loss: Estimated blood loss was minimal. Rebekah Kothari MD DIGESTIVE DISEASE Final Result * PAP FLUID CERVICAL SCREENING (02/22/2021 12:13 PM EDT) Cane Flume Watcher ADDITIONAL PROCEDURES PRESENT Specimen originated from [facility] Specimen #: [id number] Submitting Physician: BOSTON SPEARS SPECIMEN SUBMITTED A: CERVICAL, SCREENING, FLUID FINAL DIAGNOSIS A. CERVICAL, SCREENING, FLUID Satisfactory for interpretation. Negative for intraepithelial lesion or malignancy. Atrophic specimen. Acute inflammation. This specimen has been analyzed by the ThinPrep Imaging System, an automated imaging and review system, which assists the laboratory in evaluating cells on ThinPrep Pap tests. Following automated imaging, selected edwards from every slide are reviewed by a therapeutic activities services worker. PAN Nelson(ASCP) (Electronic Signature) ADDITIONAL PROCEDURE(S) HUMAN PAPILLOMA VIRUS Date Ordered: 02/23/2021 Date Reported: 02/24/2021 Procedure Results and Interpretation Negative for HPV DNA high risk type 16 by PCR. Negative for HPV DNA high risk type 18 by PCR. Negative for HPV DNA high risk types: 31,33,35,39,45,51, 52,56,58,59,66,68 by PCR. This test was developed and its performance characteristics determined by [facility]'s [facility] [place] ([facility] It has not been cleared or approved by the FDA. [facility] is regulated under CLIA as qualified to perform high-complexity testing. This test is used for clinical purposes. It should not be regarded as investigational or for research. CLINICAL DATA ROUTINE EXAM, HPV Testing: Yes, automatic HPV patients over 30 Date of Last Menstrual Period: Postmenopausal STAINS A: CERVICAL, SCREENING, FLUID THIN PREP AADC PLANS STAFF OFFICER Lara Figueroa M.D., Incident Manager Date of Report: 03/02/2021 Date of Procedure: 02/22/2021 Date of Receipt: 02/23/2021 Submitted by: BOSTON SPEARS Location: [facility] Diagnostic interpretation performed at [facility], [address] [facility] [address]. CLIA Number: [id number] The Pap Smear is a screening test for cervical cancer. False negative results occur with all screening tests, emphasizing the need for rescreening at recommended intervals, and clinical correlation. COPATH[facility]US Cervix SPECIMEN FROM CERVIX OR VAGINA / Unknown 02/22/2021 12:13 PM EDT 02/23/2021 2:16 PM EDT us Mary Briseno PA-C CYTOLOGY Edited Result - Final COP[facility] [address] [place] [address] from Last 3 Months or Most Recently Relevant to Health Maintenance Insurance [facility] MEDICARE ADVANTAGE [place] MEDICAID [place] Advance Directives Documents on File Type Date Recorded Patient Chair Post Machine Operator Expl anation Advance Directive(s) 10/07/2017 1:37 PM * Full Code (Latest Code Status on File) Date Activated Date Inactivated Comments 02/21/2022 1:50 PM 02/22/2022 5:28 PM Question Answer Comments Full Code Order Discussed With: Patient Care Teams Supervisor Statement Clerks Relationship Specialty Start Date End Date Mary Briseno PA-C [address] [place] [address] PCP - General Internal Medicine 09/20/22 Yousif Castillo [address] [address] [place] [address] Gastroenterology 03/19/17 Malini Lemon NP [address] [place] [address] Referring 04/10/21 Dolores Augustin MD [address] [place] [address] Federal District Clerk Family Medicine 05/15/24 Ana Paula Jha APRN [address] [place] [address] Federal District Clerk Internal Medicine 05/15/24 Cleopatra Maldonado, SULEIMAN [address] [place] [address] Specialty Drywall Metal Stud Worker Hematology/Oncology 08/13/24 Veena Duron LSW Vice President Of Communications 08/19/24 Kal Kaur MD [address] [place] [address] Physician Hematology/Oncology 12/15/24
--- OUTSIDE RECORDS SUMMARY | 2025-01-19 01:09 | XMS_ITS | Clinical Summary ---
Author Organization [facility] Address [address], [address] [place] [address] Care Team Providers Care Small Engine Specialist Name Role Phone Cleopatra Pozo MD Primary Care Provider [phone] Social History Tobacco Use Types Packs/Day Years Used Date Smoking Tobacco: Never Assessed Comments Unknown Sex and Gender Information Value Date Recorded Sex Assigned at Not on file Legal Sex Female 1:34 AM EST Gender Identity Not on file Sexual Orientation Not on file Plan of Treatment Not on file Care Teams Small Engine Specialist Relationship Specialty Start Date End Date Cleopatra Pozo MD PCP - General 03/07/15
--- OUTSIDE RECORDS SUMMARY | 2025-01-19 01:09 | XMS_ITS | Encounter Summary ---
Author Organization [facility] Address [address] [place] [address] Care Team Providers Care Straightener Hand Name Role Phone Clotilde Pantoja MD Primary Care Provider + Pcp, No Primary Care Provider Unavailabl e Pcp, No Primary Care Provider Unavailabl e Pcp, No Primary Care Provider Unavailabl e Clotilde Pantoja MD Primary Care Provider + Veronica Jo MD Primary Care Provider [phone] Pcp, No Primary Care Provider Unavailabl e Veronica Jo MD Primary Care Provider [phone] Sharmin Corado MD Primary Care Provider + [phone] Pcp, No Primary Care Provider Unavailabl e Cleopatra Pozo MD Primary Care Provider [phone] Pcp, No Primary Care Provider Unavailabl e Pcp, No Primary Care Provider Unavailabl e Yousif Pichardo Unavailable + [phone] Pcp, No Primary Care Provider Unavailabl e Joseph Hunt MD Primary Care Provider [phone] Joseph Hunt MD Primary Care Provider [phone] Mary Briseno PA-C Primary Care Provider + Dolores Augustin MD Primary Care Provider + Malini Lemon NP Unavailable [phone] Malini Lemon NP Primary Care Provider [phone] Mary Briseno PA-C Primary Care Provider + Tamie Ignacio RN Unavailable [phone] Ariella Hernández RN Unavailable [phone] Dolores Augustin MD Primary Care Provider + Mary Briseno PA-C Primary Care Provider + Shirley Crook RN Unavailable [phone] Dolores Augustin MD Unavailable + Ana Paula Jha ELECTRICAL HIGH TENSION TESTER Unavailable [phone] Randall Stearns MD Unavailable Unavail able Cleopatra Maldonado RN Unavailable [phone] Veena Duron Unavailable Unavailable Kal Kaur MD Unavailable [phone] Source Comments In the event this information is protected by the Federal Confidentiality of Alcohol and Drug AbusePatient Records regulations: The Federal rules restrict any use of the information to criminally investigate or prosecute any alcohol or drug abuse patient.[facility] Encounter Details Date Type Department Care Team (Late st Contact Info) Description 08/10/2008 Abstract Endocrinology [address] [place] [address] Alissa Jacobs, ELECTRICAL HIGH TENSION TESTER.[facility] [address] [place] [address] Social History Tobacco Use Types Packs/Day Years Used Date Smoking Tobacco: Every Day Cigarettes 1 25 Alcohol Use Standard Drinks/Week Comments No 0 (1 standard drink = 0.6 oz pur e alcohol) Comments No Sex and Gender Information Value Date Recorded Sex Assigned at Not on file Legal Sex Female 7:29 AM EST Gender Identity Not on file Sexual Orientation Not on file documented as of this encounter Plan of Treatment Upcoming Encounters Date Type Department Care Team (Late st Contact Info) Description 01/12/2025 11:59 PM EDT Anesthesia Event [facility] [place] [address] [place] [address] Ssii Escobar APRN.[address] [address] 01/22/2025 3:40 PM EDT Office Visit Family Medicine [place] [address] [facility] [address] Mary Briseno PA-C [address] [facility] [place] [address] 3 month follow up 01/26/2025 10:00 AM EDT Appointment [facility] Endoscopy [place] [address] [address] [place] [address] Perry Connell Jr., [address] [place] [phone] dieabetic: EGD DIAGNOSTIC/COLONOSC OPY DIAGNOSTIC 02/01/2025 3:15 PM EDT Office Visit [facility] [address] [place] [address] 3 month MAYANK/BRM with lab 02/01/2025 3:40 PM EDT Visit (SP) Office Hematology/Oncolog y [address] [facility] [address] Kal Kaur MD [address] [place] [address] 3 month MAYANK/BRM with lab 02/02/2025 4:30 PM EDT Office Visit [facility] [address] [place] [address] Gopal Leija DPM [address] [place] [address] RFC and FU for Pain 03/22/2025 1:30 PM EDT Office Visit Endocrinology [address] [place] [address] Monae Delgado APRN.PAPER COATING MACHINE OPERATOR [address] [facility] [place] [address] Return in about 3 months (around 02/24/2025). 08/11/2025 2:40 PM EST Office Visit Rheumatology [address] [place] [address] Vineet Peñ[place] [address] [facility] [place] [address] 8 month follow up 02/11/2026 10:00 AM EDT Office Visit Obstetrics/Gynecol ogy [address] [place] [address] [place] [address] [place] [address] new annual requested RS documented as of [...] documented as of this encounter Care Teams Straightener Hand Relationship Specialty Start Date End Date Clotilde Pantoja MD [address] [place] [address] PCP - General 01/10/10 07/10/10 Pcp, No [address] [place] [address] PCP - General 12/08/09 01/09/10 Pcp, No [address] [facility] [address] PCP - General 04/26/09 12/07/09 Pcp, No [address] [facility] [address] PCP - General 08/09/08 03/09/09 Clotilde Pantoja MD [address] [facility] [address] PCP - General Internal Medicine 07/14/10 01/04/13 Veronica Jo MD [address] [facility] [address] PCP - General Family Medicine 01/05/13 02/11/14 Pcp, No PCP - General 02/12/14 03/11/14 Veronica Jo MD [address] [place] [address] PCP - General 03/12/14 04/29/14 Sharmin Corado MD [address] [place] [address] PCP - General Internal Medicine 04/30/14 10/04/14 Pcp, No PCP - General Family Medicine 10/05/14 11/14/14 Cleopatra Pozo MD [address] [place] [address] PCP - General Internal Medicine 11/15/14 10/24/16 Pcp, No PCP - General 10/25/16 01/23/17 Pcp, No PCP - General Family Medicine 01/24/17 04/16/17 Pcp, No PCP - General 04/17/17 11/07/17 Joseph Hunt MD [address] [facility] [address] [place] [address] PCP - General Family Medicine 04/02/19 02/12/20 Joseph Hunt MD [address] [facility] [address] [place] [address] PCP - General Family Medicine 04/27/20 09/11/20 Mary Briseno PA-C [address] [place] [address] PCP - General Family Medicine 09/12/20 01/22/21 Dolores Augustin MD [address] [place] [address] PCP - General Family Medicine 01/23/21 04/09/21 Malini Lemon STEAM ROLLER OPERATOR [address] [place] [address] [place] [address] PCP - General 04/10/21 06/28/21 Mary Briseno PA-C [address] [place] [address] PCP - General Internal Medicine 06/29/21 04/08/22 Dolores Augustin MD [address] [place] [address] PCP - General Family Medicine 04/09/22 09/19/22 Mary Briseno PA-C [address] [place] [address] PCP - General Internal Medicine 09/20/22 Yousif Pichardo [address] [address] Gastroenterology 03/19/17 Malini Lemon, STEAM ROLLER OPERATOR [address] [place] [address] [place] [address] Referring 04/10/21 Tamie Ignacio, SULEIMAN [address] [id number] Primary Care Mortar Maker 02/23/22 03/24/22 Ariella Hernández RN [address] [id number] Bistro Server Primary Care 03/26/22 11/11/22 [place] [address] [address] [address] [id number] Bistro Server 11/12/22 02/05/24 Dolores Augustin MD [address] [id number] Zoning Assistant Family Medicine 05/15/24 Ana Paula Jha APRN [address] [address] [id number] Zoning Assistant Internal Medicine 05/15/24 [place] [address] [address] [id number] Physician Hematology/Oncology 08/13/24 12/14/24 Cleopatra Maldonado, SULEIMAN [address] [place] [address] Specialty Hanger Off Hematology/Oncology 08/13/24 Veena Duron LSW Fire Control Officer 08/19/24 Kal Kaur MD [address] [facility] [place] [address] Physician Hematology/Oncology 12/15/24 documented as of this encounter
--- OUTSIDE RECORDS SUMMARY | 2025-01-19 01:09 | XMS_ITS | Encounter Summary ---
Author Organization [facility] Address [address] [place] [address] Care Team Providers Care Machine Maintenance Supervisor Name Role Phone Clotilde Pantoja MD Primary Care Provider + Pcp, No Primary Care Provider Unavailabl e Pcp, No Primary Care Provider Unavailabl e Pcp, No Primary Care Provider Unavailabl e Clotilde Pantoja MD Primary Care Provider + Veronica Jo MD Primary Care Provider [phone] Pcp, No Primary Care Provider Unavailabl e Veronica Jo MD Primary Care Provider [phone] Sharmin Corado MD Primary Care Provider + [phone] Pcp, No Primary Care Provider Unavailabl e Cleopatra Pozo MD Primary Care Provider [phone] Pcp, No Primary Care Provider Unavailabl e Pcp, No Primary Care Provider Unavailabl e Yousif Pichardo Unavailable + [phone] Pcp, No Primary Care Provider Unavailabl e Joseph Hunt MD Primary Care Provider [phone] Joseph Hunt MD Primary Care Provider [phone] Mary Briseno PA-C Primary Care Provider + Dolores Augustin MD Primary Care Provider + Malini Lemon NP Unavailable [phone] Malini Lemon NP Primary Care Provider [phone] Mary Briseno PA-C Primary Care Provider + Tamie Ignacio RN Unavailable +[phone] Ariella Hernández RN Unavailable [phone] Dolores Augustin MD Primary Care Provider + Mary Briseno PA-C Primary Care Provider + Shirley Crook RN Unavailable [phone] Dolores Augustin MD Unavailable + Ana Paula Jha KETTLE FRY COOK OPERATOR Unavailable [phone] Randall Stearns MD Unavailable Unavail able Cleopatra Maldonado RN Unavailable [phone] Veena Duron Unavailable Unavailable Kal Kaur MD Unavailable +[phone] Source Comments In the event this information is protected by the Federal Confidentiality of Alcohol and Drug AbusePatient Records regulations: The Federal rules restrict any use of the information to criminally investigate or prosecute any alcohol or drug abuse patient.[facility] Encounter Details Date Type Department Care Team (Late st Contact Info) Description 11/29/2008 Abstract Endocrinology 57[address] [place] [address] Alissa Jacobs, KETTLE FRY COOK OPERATOR.[facility] [address] [place] [address] Social History Tobacco Use Types Packs/Day Years [...] Description 01/12/2025 11:59 PM EDT Anesthesia Event [facility] [place] [address] [place] [address] Sisi Escobar APRN.[address] [address] 01/22/2025 3:40 PM EDT Office Visit Family Medicine [place] [address] [facility] [place] [address] Mary Briseno PA-C [address] [facility] [place] [address] 3 month follow up 01/26/2025 10:00 AM EDT Appointment [facility] Endoscopy [place] [address] [address] [place] [address] Perry Connell Jr., [address] [place] [address] dieabetic: EGD DIAGNOSTIC/COLONOSC OPY DIAGNOSTIC 02/01/2025 3:15 PM EDT Office Visit [facility] [address] [facility] [place] [address] 3 month MAYANK/BRM with lab 02/01/2025 3:40 PM EDT Visit (SP) Office Hematology/Oncolog y [address] [facility] [place] [address] Kal Kaur MD [address] [facility] [place] [address] 3 month MAYANK/BRM with lab 02/02/2025 4:30 PM EDT Office Visit [facility] [address] [place] [address] Gopal Leija DPM [address] [place] [address] RFC and FU for Pain 03/22/2025 1:30 PM EDT Office Visit Endocrinology [address] [place] [address] Monae Delgado APRN.CAFETERIA AIDE [address] [facility] [place] [address] Return in about 3 months (around 02/24/2025). 08/11/2025 2:40 PM EST Office Visit Rheumatology [address] [place] [address] Vineet Peñaloza [place] [address] [place] [address] 8 month follow up 02/11/2026 10:00 AM EDT Office Visit Obstetrics/Gynecol ogy [address] [place] [address] [place] [address] [place] [address] new annual requested RS documented as of [...] documented as of this encounter Care Teams Machine Maintenance Supervisor Relationship Specialty Start Date End Date Clotilde Pantoja MD [address] [place] [address] PCP - General 01/10/10 07/10/10 Pcp, No [address] [place] [address] PCP - General 12/08/09 01/09/10 Pcp, No [address] [facility] [place] [address] PCP - General 04/26/09 12/07/09 Pcp, No [address] [facility] [place] [address] PCP - General 08/09/08 03/09/09 Clotilde Pantoja MD [address] [facility] [place] [address] PCP - General Internal Medicine 07/14/10 01/04/13 Veronica Jo MD [address] [facility] [place] [address] PCP - General Family Medicine 01/05/13 02/11/14 Pcp, No PCP - General 02/12/14 03/11/14 Veronica Jo MD [address] [place] [address] PCP - General 03/12/14 04/29/14 Sharmin Corado MD [address] [place] [address] PCP - General Internal Medicine 04/30/14 10/04/14 Pcp, No PCP - General Family Medicine 10/05/14 11/14/14 Cleopatra Pozo MD [address] [place] [address] PCP - General Internal Medicine 11/15/14 10/24/16 Pcp, No PCP - General 10/25/16 01/23/17 Pcp, No PCP - General Family Medicine 01/24/17 04/16/17 Pcp, No PCP - General 04/17/17 11/07/17 Joseph Hunt MD 703 [facility] 151 [place] [address] PCP - General Family Medicine 04/02/19 02/12/20 Joseph Hunt MD 703 [facility] 151 [place] [address] PCP - General Family Medicine 04/27/20 09/11/20 Mary Briseno PA-C [address] [place] [address] PCP - General Family Medicine 09/12/20 01/22/21 Dolores Augustin MD [address] [place] [address] PCP - General Family Medicine 01/23/21 04/09/21 Malini Lemon PAN CLEANER [address] [place] [address] [place] [address] PCP - General 04/10/21 06/28/21 Mary Briseno PA-C [address] [place] [address] PCP - General Internal Medicine 06/29/21 04/08/22 Dolores Augustin MD [address] [place] [address] PCP - General Family Medicine 04/09/22 09/19/22 Mary Briseno PA-C [address] [place] [address] PCP - General Internal Medicine 09/20/22 Yousif Pichardo [address] [address] Gastroenterology 03/19/17 Malini Lemon, PAN CLEANER [address] [place] [address] [place] [address] Referring 04/10/21 Tamie Ignacio, SULEIMAN [address] [place] [phone] Primary Care Junior Staff Accountant 02/23/22 03/24/22 Ariella Hernández RN [address] [place] [id number] Oracle Obiee Developer Primary Care 03/26/22 11/11/22 [place] [address] [place] [id number] Oracle Obiee Developer 11/12/22 02/05/24 Dolores Augustin MD [address] [place] [phone] Indian Trader Family Medicine 05/15/24 Ana Paula Jha APRN [address] [place] [phone] Indian Trader Internal Medicine 05/15/24 [place] [address] [place] [phone] Physician Hematology/Oncology 08/13/24 12/14/24 Cleopatra Maldonado, SULEIMAN [address] [facility] [place] [address] Specialty Maintenance Man Hematology/Oncology 08/13/24 Veena Duron LSW Awning Craftsman 08/19/24 Kal Kaur MD 417 [facility] [place] [address] Physician Hematology/Oncology 12/15/24 documented as of this encounter
--- OUTSIDE RECORDS SUMMARY | 2025-01-19 01:09 | XMS_ITS | Encounter Summary ---
Author Organization [facility] Address [address] [place] [address] Care Team Providers Care Vegetable Scullion Name Role Phone Chi Anna Yousif Dunn Unavailable [phone] Malini Lemon NP Unavailable [phone] Mary Briseno PA-C Primary Care Provider [phone] Dolores Augustin MD Unavailable Ana Paula Jha APRN Unavailable [phone] Randall Stearns MD Unavailable Unavail able Cleopatra Maldonado RN Unavailable [phone] Veena Duron Unavailable Unavailable Kal Kaur MD Unavailable [phone] Source Comments In the event this information is protected by the Federal Confidentiality of Alcohol and Drug AbusePatient Records regulations: The Federal rules restrict any use of the information to criminally investigate or prosecute any alcohol or drug abuse patient.[facility] Encounter Details Date Type Department Care Team (Late st Contact Info) Description 08/12/2024 Patient Msg Functional Medicine [address] [id number] Provider, Ccf Consult to Functional Medicine Social History Tobacco Use Types Packs/Day Years [...] is lower risk 7 03/02/2024 Data from: https://www.neighborhoodatlas.medicine.[facility].edu/. Last address used for calculation [...] 01/12/2025 11:59 PM EDT Anesthesia Event [facility] Endoscopy [facility] [address] [place] [address] [place] [address] 01/22/2025 3:40 PM EDT Office Visit Family Medicine [place] 5700 [place] [address] Mary Briseno PA-C 5700 [place] [address] 3 month follow up 01/26/2025 10:00 AM EDT Appointment [facility] Endoscopy [place] [address] [address] [place] [address] Perry Connell Jr., [address] [place] [address] dieabetic: EGD DIAGNOSTIC/COLONOSC OPY DIAGNOSTIC 02/01/2025 3:15 PM EDT Office Visit [facility] Laboratory [address] [facility] [place] [address] 3 month MAYANK/BRM with lab 02/01/2025 3:40 PM EDT Visit (SP) Office Hematology/Oncolog y [address] [place] [address] Kal Kaur MD [address] [place] [address] 3 month MAYANK/BRM with lab 02/02/2025 4:30 PM EDT Office Visit [facility] [address] [facility] [place] [address] Gopal Leija, DPM [address] [facility] [facility] [address] RFC and FU for Pain 03/22/2025 1:30 PM EDT Office Visit Endocrinology 5700 [facility] [place] [address] Monae Delgado APRN.GLOST PLACER [address] [facility] [address] Return in about 3 months (around 02/24/2025). 08/11/2025 2:40 PM EST Office Visit Rheumatology [address] [place] [address] Vineet Peñaloza [place] [address] [facility] [place] [address] 8 month follow up 02/11/2026 10:00 AM EDT Office Visit Obstetrics/Gynecol ogy [address] [place] [address] [place] [address] [place] [address] new annual requested RS documented as of this encounter Visit Diagnoses Not on filedocumented in this encounter Care Teams Vegetable Scullion Relationship Specialty Start Date End Date Mary Briseno PA-C 5700 [facility] [place] [address] PCP - General Internal Medicine 09/20/22 Yousif Pichardo 7[address] [facility] 151 [place] [address] Gastroenterology 03/19/17 Malini Lemon, SEO CONSULTANT [address] [place] [address] Referring 04/10/21 Dolores Augustin MD [address] [place] [address] Sanding Machine Operator Family Medicine 05/15/24 Ana Paula Jha APRN [address]00 [place] [address] Sanding Machine Operator Internal Medicine 05/15/24 Randall Stearns MD [address] [place] [address] Physician Hematology/Oncology 08/13/24 12/14/24 Cleopatra Maldonado, SULEIMAN [address] [place] [address] Specialty Psych Tech Hematology/Oncology 08/13/24 Veena Duron, GUIDE Band Bias Machine Operator 08/19/24 Kal Kaur MD [address] [place] [address] Physician Hematology/Oncology 12/15/24 documented as of this encounter
--- OUTSIDE RECORDS SUMMARY | 2025-01-19 01:09 | XMS_ITS | Clinical Summary ---
Author Organization [facility] Address [address] [place] [address] Phone Care Team Providers Care Biodiesel Plant Superintendent Name Role Phone Unavailable Primary Care Provider Unavailabl e Social History Tobacco Use Types Packs/Day Years Used Date Smoking Tobacco: Never Assessed Comments Unknown Sex and Gender Information Value Date Recorded Sex Assigned at Not on file Legal Sex Female 1:18 AM EST Gender Identity Not on file Sexual Orientation Not on file Last Filed Vital Signs Vital Sign Reading Time Taken Comments Blood Pressure 179/96 01/24/2022 3:24 PM EDT Pulse 86 01/24/2022 3:24 PM EDT Temperature 36.6 C (97.8 F) 01/24/2022 3:24 PM EDT Respiratory Rate - - Oxygen Saturation - - Inhaled Oxygen Concentration - - Weight 71.2 kg (157 lb) 01/24/2022 3:24 PM EDT Height 165.1 cm (5' 5 ) 01/24/2022 3:24 PM EDT Body Mass Index 26.13 01/24/2022 3:24 PM EDT Plan of Treatment Health Maintenance Due Date Last Done Comments CT Colonography 1958 Colonoscopy 1958 Colorectal Cancer Screening 1958 FIT-DNA (Cologuard) 1958 FIT 1958 Lipid Panel 1958 Sigmoidoscopy 1958 Yearly Adult Physical 1958 MMR Vaccines (1 of 1 - Stand leticia series) 1959 Diabetes Screening 1976 Hepatitis C Screening 1976 DTaP/Tdap/Td Vaccines (1 - Tdap) 1980 Mammogram 1998 Hepatitis B Vaccines (2 of 3 - Hep B Twinrix 3-dose series) 06/28/2006 05/31/2006 Pneumococcal Vaccine (1 of 1 - PCV) 2008 Zoster Vaccines (1 of 2) 2008 Bone Density Scan 2023 COVID-19 Vaccine (1 - 2023-2 5 season) 2024 Influenza Vaccine (#1) 2025 RSV High Risk: (Elderly (60+ ) or Population) (1 - 1-dose 75+ series) 2033 Hepatitis A Vaccines Aged Out 05/31/2006 No long er eligible based on patient's age to complete this topic HIB Vaccines Aged Out No longer eligi ble based on patient's age to complete this topic HPV Vaccines Aged Out No longer eligi ble based on patient's age to complete this topic IPV Vaccines Aged Out No longer eligi ble based on patient's age to complete this topic Meningococcal Vaccine Aged Out No traci sourav eligible based on patient's age to complete this topic Rotavirus Vaccines Aged Out No longer eligible based on patient's age to complete this topic
--- OUTSIDE RECORDS SUMMARY | 2025-01-19 01:09 | XMS_ITS | Encounter Summary ---
Author Organization [facility] Address [address] [place] [address] Care Team Providers Care Brim Pouncing Machine Operator Name Role Phone Yousif Pichardo Unavailable [phone] Malini Lemon NP Unavailable [phone] Mary Briseno PA-C Primary Care Provider [phone] Dolores Augustin MD Unavailable Ana Paula Jha APRN Unavailable [phone] Cleopatra Maldonado RN Unavailable [phone] Veena Duron Unavailable Unavailable Kal Kaur MD Unavailable [phone] Source Comments In the event this information is protected by the Federal Confidentiality of Alcohol and Drug AbusePatient Records regulations: The Federal rules restrict any use of the information to criminally investigate or prosecute any alcohol or drug abuse patient.[facility] Reason for Visit * Reason Comments Patient Update Encounter Details Date Type Department Care Team (Late st Contact Info) Description 12/30/2024 Telephone [place] [address] [place] [address] Mary Briseno PA-C 0460 [facility] [place] [address] Patient Update Social History Tobacco Use Types Packs/Day Years [...] is lower risk 7 03/02/2024 Data from: https://www.neighborhoodatlas.medicine.[facility].edu/. Last address used for calculation [...] encounter Miscellaneous Notes * Telephone Encounter - Jason Sifuentes - 12/30/2024 2:16 PM EDT Farnaz is calling Mary Briseno PA-C today to request Patient Update. Sheila calling to let provider know a health risk assessment has been done on this patient. If provider would like to discuss further, can call Sheila at [phone] Patient has been identified by name and birthdate. Duration of symptoms: N/A Person calling: Sheila Collisionable Call patient at: at home and on cell [phone] (home) [phone] (cell) Was an appointment scheduled: No Closing statement: Results or non-symptom based questions: Thank you for calling [facility], your call will be returned within the next business day. Jason Sifuentes documented in this encounter Plan of Treatment Upcoming Encounters Date Type Department Care Team (Late st Contact Info) Description 01/12/2025 11:59 PM EDT Anesthesia Event [facility] Endoscopy Center [place] [address] [address] [place] [address] Sisi Escobar APRN.ENTERTAINMENT AGENT 3610 [place] [address] 01/22/2025 3:40 PM EDT Office Visit Family Medicine [place] 5700 [place] [address] Mary Briseno PA-C 5700 [facility] [place] [address] 3 month follow up 01/26/2025 10:00 AM EDT Appointment [facility] Endoscopy [facility] [place] [address] [place] [address] Perry Connell Jr., [address] [facility] [address] [place] [address] dieabetic: EGD DIAGNOSTIC/COLONOSC OPY DIAGNOSTIC 02/01/2025 3:15 PM EDT Office Visit [facility] Laboratory [address] [place] [address] 3 month MAYANK/BRM with lab 02/01/2025 3:40 PM EDT Visit (SP) Office Hematology/Oncolog y [address] [place] [address] Kal Kaur MD [address] [place] [address] 3 month MAYANK/BRM with lab 02/02/2025 4:30 PM EDT Office Visit [facility] [address] [facility] [place] [place] [address] Gopal Lejia, DPM [address] [facility] [place] [address] RFC and FU for Pain 03/22/2025 1:30 PM EDT Office Visit Endocrinology [address] [place] [address] Monae Delgado APRN.MAINTENANCE TEAM MEMBER 5700 [facility] [place] [phone] Return in about 3 months (around 02/24/2025). 08/11/2025 2:40 PM EST Office Visit Rheumatology [address] [facility] [place] [address] Vineet Peñaloza [place] [address] [facility] [place] [address] 8 month follow up 02/11/2026 10:00 AM EDT Office Visit Obstetrics/Gynecol ogy [address] [place] [address] [place] [address] [facility] [place] [address] new annual requested RS documented as of this encounter Visit Diagnoses Not on filedocumented in this encounter Care Teams Brim Pouncing Machine Operator Relationship Specialty Start Date End Date Mary Briseno PA-C [address] [place] [address] PCP - General Internal Medicine 09/20/22 Yousif Pichardo [address] [place] [address] Gastroenterology 03/19/17 Malini Lemon, SLURRY WORKER [address] [place] [address] Referring 04/10/21 Dolores Augustin MD [address] [place] [address] Logistics Planning Engineer Family Medicine 05/15/24 Ana Paula Jha APRN [address] [place] [address] Logistics Planning Engineer Internal Medicine 05/15/24 Cleopatra Maldonado RN [address] [place] [address] [place] [address] Specialty Inspection And Testing Supervisor Hematology/Oncology 08/13/24 Veena Duron, PHYSIATRIST Health Inspector 08/19/24 Kal Karu MD [address] [place] [address] [place] [address] Physician Hematology/Oncology 12/15/24 documented as of this encounter
--- OUTSIDE RECORDS SUMMARY | 2025-01-19 01:09 | XMS_ITS | Encounter Summary ---
Author Organization [facility] Address [address] [place] [address] Care Team Providers Care Ladderman Name Role Phone Chi MosleymejiaYousif Unavailable [phone] Malini Lemon NP Unavailable [phone] Mary Briseno PA-C Primary Care Provider [phone] Dolores Augustin MD Unavailable Ana Paula Jha APRN Unavailable [phone] Cleopatra Maldonado RN Unavailable [phone] Veena Duron Unavailable Unavailable Kal Kaur MD Unavailable [phone] Source Comments In the event this information is protected by the Federal Confidentiality of Alcohol and Drug AbusePatient Records regulations: The Federal rules restrict any use of the information to criminally investigate or prosecute any alcohol or drug abuse patient.[facility] Encounter Details Date Type Department Care Team (Late st Contact Info) Description 01/07/2025 Social Work Hematology/Oncology [address] [place] [address] [place] [address] Veena Duron LSW Social History Tobacco Use Types Packs/Day Years [...] is lower risk 7 03/02/2024 Data from: https://www.neighborhoodatlas.medicine.[facility].edu/. Last address used for calculation spring03/02/2024 Comments [...] documented in this encounter Progress Notes * Veena Duron LSW - 01/07/2025 9:26 AM EDT SOCIAL WORK FOLLOW UP NOTE: [facility] Date of service:01/07/25 TOPICS ADDRESSED: community resources PLAN: Continue follow up as needed Assigned SW listed in Care Team tab: Yes SW completed and faxed November and December 2024 mileage reimbursement log to [facility]. BRETT Bernabe documented in this encounter Plan of Treatment Upcoming Encounters Date Type Department Care Team (Late st Contact Info) Description 01/12/2025 11:59 PM EDT Anesthesia Event [facility] Endoscopy [place] [address] [address] [place] [address] [place] [address] 01/22/2025 3:40 PM EDT Office Visit Family Medicine [place] [address] [place] [address] Mary Briseno PA-C 5700 [facility] [place] [address] 3 month follow up 01/26/2025 10:00 AM EDT Appointment [facility] Endoscopy [place] [address] [place] [address] Perry Connell Jr., [address] [place] [address] dieabetic: EGD DIAGNOSTIC/COLONOSC OPY DIAGNOSTIC 02/01/2025 3:15 PM EDT Office Visit [facility] Laboratory [address] [facility] [place] [address] 3 month MAYANK/BRM with lab 02/01/2025 3:40 PM EDT Visit (SP) Office Hematology/Oncolog y [address] [facility] [place] [address] Kal Kaur MD [address] [facility] [place] [address] 3 month MAYANK/BRM with lab 02/02/2025 4:30 PM EDT Office Visit [facility] [address] [facility] [place] [address] Gopal Leija, GERBER [address] [facility] [place] [address] RFC and FU for Pain 03/22/2025 1:30 PM EDT Office Visit Endocrinology 5700 [facility] [place] [address] Monae Delgado APRN.BALANCING MACHINE OPERATOR [address] [facility] [address] Return in about 3 months (around 02/24/2025). 08/11/2025 2:40 PM EST Office Visit Rheumatology [address] [place] [address] Vineet Peñ[place] [address] [place] [address] 8 month follow up 02/11/2026 10:00 AM EDT Office Visit Obstetrics/Gynecol ogy [address] [place] [address] [place] [address] [place] [address] new annual requested RS documented as of this encounter Visit Diagnoses Not on filedocumented in this encounter Care Teams Ladderman Relationship Specialty Start Date End Date Mary Briseno PA-C [address] [place] [address] PCP - General Internal Medicine 09/20/22 Yousif Pichardo [address] [place] [address] Gastroenterology 03/19/17 Malini Lemon, PUMP STITCHER [address] [place] [address] Referring 04/10/21 Dolores Augustin MD [address] [place] [address] Formula Weigher Family Medicine 05/15/24 Ana Paula Jha APRN [address] [place] [address] Formula Weigher Internal Medicine 05/15/24 Cleopatra Maldonado, SULEIMAN [address] [facility] [place] [address] Specialty Dye Maker Hematology/Oncology 08/13/24 Veena Duron LSW Firer Kiln 08/19/24 Kal Kaur MD [address] [facility] [place] [address] Physician Hematology/Oncology 12/15/24 documented as of this encounter
--- NOTE | 2025-01-19 01:27 | CT_ITS ---
The [address] [address] Patient Name: CORAL PERERA MRN: [id number] date: 1960 Sex: F Assigned Patient Location: ER Current Patient Location: .[facility] Accession/Order Number: [id number] Exam Date: 01/19/2025 08:37 Report Date: 01/19/2025 08:40 At the request of: SHANTE ALFARO DO Procedure: CT chest w con CT CHEST WITH INTRAVENOUS CONTRAST: CLINICAL HISTORY: abscess, cancer mets history of mastectomy in June. Swelling left side of neck and shoulder. COMPARISON: None TECHNIQUE: Spiral images were obtained through the chest following intravenous administration of IV contrast. This CT exam was performed using one or more following dose reduction techniques: Automated exposure control, adjustment of the mA and/or kV according to patient size, or use of iterative reconstruction technique. FINDINGS: Mediastinum:Thoracic aorta appears normal in caliber. Pulmonary trunk appears nondilated. No pericardial effusion. No lymphadenopathy. The esophagus is grossly unremarkable. Lungs:Presumed posttreatment changes seen involving the anterior aspect of the left lung. Biapical scarring. Bibasilar scarring. No consolidation pneumothorax or pleural effusion. 5 mm nodule right upper lobe series 5 image 21. Abd:Post surgical changes involving the liver. Subcentimeter low attenuating lesions are seen within the liver too small fracture characterization. No acute intra-abdominal process is seen. Small cyst right kidney. Soft tissues/Bones: Left mastectomy changes. No fluid collection is seen within the surgical bed or axilla. Osseous structures demonstrate degenerative change. Chronic appearing inferior endplate deformity of the T12 vertebral body. CT/CT chest w con IMPRESSION: No acute findings. No fluid collection is seen within the mastectomy bed or axilla to suggest abscess. 5 mm pulmonary nodule right upper lobe. Given the history of cancer, developing metastatic disease cannot BE excluded. Impression dictated by: Ronald Barros Jr., D.O. 01/19/2025 8:40 AM Dictation Location: [place] [address] Electronically authenticated by: [id number] Y Date: 01/19/2025 08:40
--- NOTE | 2025-01-19 01:27 | CT_ITS ---
The [address] [address] Patient Name: CORAL PERERA MRN: [id number] date: 1960 Sex: F Assigned Patient Location: ER Current Patient Location: ED.MAIN Accession/Order Number: [id number] Exam Date: 01/19/2025 08:36 Report Date: 01/19/2025 08:37 At the request of: SHANTE ALFARO DO Procedure: CT head/brain wo con CT BRAIN WITHOUT CONTRAST: CLINICAL HISTORY: headache, hx cancer COMPARISON: None TECHNIQUE: Contiguous axial unenhanced images were obtained through the brain. This CT exam was performed using one or more following dose reduction techniques: Automated exposure control, adjustment of the mA and/or kV according to patient size, or use of iterative reconstruction technique. FINDINGS: There is no evidence of midline shift, intra or extra-axial fluid collection, hemorrhage or CT evidence of stroke. Cortical atrophy with chronic microvascular ischemic changes. Posterior fossa appears unremarkable. Visualized intraorbital contents demonstrate no acute findings. Visualized paranasal sinuses are clear. The surrounding soft tissues are normal. CT/CT head/brain wo con IMPRESSION: NO ACUTE INTRACRANIAL ABNORMALITY. Impression dictated by: Barbara Smith Jr.OSusana 01/19/2025 8:37 AM Dictation Location: [place] [address] Electronically authenticated by: [id number] Y Date: 01/19/2025 08:37
--- NOTE | 2025-01-19 01:34 | ED.GENADUL1 ---
HPI HPI - General Adult General Chief complaint: Weakness Stated complaint: WEAKNESS, CONFUSION Time Seen by Provider: 01/19/25 01:06 Source: patient Mode of arrival: walk-in Limitations: no limitations History of Present Illness HPI narrative: The patient is a 64-year-old female with a history of breast cancer and a GI stromal tumor who presents to the emergency department with a constellation of symptoms. Patient leads where she is shaking and she feels like she is dying. Patient states that she feels like she has sepsis or an infection. She states that she has a headache, it feels like the blood is draining from her head, she has neck and shoulder pain, she feels tight in the back of her left trapezius, she has cramping in her muscles, cannot stand, her vision is poor, and she feels hot, cold and sweaty. Unknown if she has had a fever. She states that she does not have a doctor helping her at this point. She states that she is not able to see her surgeon. She states that she had an original mastectomy in 2007 and had a revision in June. She states that she has a scar on her chest and she is trying to see an employee welfare manager for malpractice. She stated that she went into the office and started yelling at her doctor and then walked out. Now, she states her doctor will not see her anymore. She has not reestablished care with anybody else. She is currently not on IV chemo or radiation at this time. She had surgery twice on her last breast and then 3 years ago had a GI stromal tumor removed. At this point she is only on Gleevec. Despite not being able to turn her head, unable to see and feeling dizzy, the patient drove here from [facility]. Mustapha stated God got her here! Related Data Allergies Allergy/AdvReac Type Severity Reaction Status Date / Time ciprofloxacin (From Cipro) Allergy Rash Verified 01/19/25 01:05 Review of Systems ROS Status of ROS 10 or more systems reviewed and unremarkable except as noted in history and below PFSH PFS Social History Little interest or pleasure in doing things: not at all Feeling down, depressed, or hopeless: not at all Exam Narrative Exam Narrative: Prior to examining the patient, I have washed with hospital approved and provided Antiseptic Hand Health Education Coordinator and have also applied gloves.? Prior to touching the patient, I asked for consent to examine the patient.? General: Alert and oriented, well nourished, mild distress. Patient smells of tobacco smoke. Eye: PERRL, EOMI, normal conjunctiva. HENT: Normocephalic, normal hearing, moist oral mucosa, no scleral icterus Neck: Supple, non-tender, no lymphadenopathy. Lungs: Clear to auscultation and percussion, non-labored respiration. No rhonchi, rales, wheezing Heart: Normal rate, regular rhythm, no murmur, gallop or edema. Abdomen: Soft, non-tender, non-distended, normal bowel sounds, no masses. Musculoskeletal: Normal range of motion and strength, no tenderness or swelling. Skin: Skin is warm, dry and pink, no rashes or lesions. Patient does have a scar on her left anterior chest wall with scar retraction. The patient does have an area that appears to have degranulated in. No fluctuance or redness appreciated. Neurologic: Awake, alert, and oriented X3, CN II-XII intact. Psychiatric: Cooperative, anxious, trembling, tearful, flat affect and depressed mood Following the conclusion of the examination, I have washed my hands thoroughly after removing examination gloves. Constitutional Vital Signs, click to edit/add: Last Vital Signs Temp 97.9 F 01/19/25 00:58 Pulse 90 01/19/25 06:30 Resp 20 01/19/25 06:30 BP 154/62 H 01/19/25 06:30 Pulse Ox 96 01/19/25 06:30 O2 Del Method Room Air 01/19/25 00:58 Course Course Hospital Course: Patient is a 64-year-old female with numerous medical complaints presenting to the emergency department stating that she has sepsis or an infection. This well-appearing patient will have labs and imaging for her stated complaint only to give her peace of mind. Reevaluation(s) Reevaluation #1: Potassium low, will supplement. Time: 02:47 Reevaluation #2: Patient was reevaluated numerous times during the night. The patient appeared to have a lot of social needs in terms of numerous warm blankets, pillows, and physical adjustments. Vital Signs Vital signs: Vital Signs Temperature 97.9 F 01/19/25 00:58 Pulse Rate 100 H 01/19/25 00:58 Respiratory Rate 20 01/19/25 00:58 Blood Pressure 169/77 H 01/19/25 00:58 Pulse Oximetry 98 01/19/25 00:58 Oxygen Delivery Method Room Air 01/19/25 00:58 Temperature 97.9 F 01/19/25 00:58 Pulse Rate 90 01/19/25 06:30 Respiratory Rate 20 01/19/25 06:30 Blood Pressure 154/62 H 01/19/25 06:30 Pulse Oximetry 96 01/19/25 06:30 Oxygen Delivery Method Room Air 01/19/25 00:58 Medical Decision Making MDM Narrative Medical decision making narrative: Summary: The patient is a 64-year-old female who presents to the emergency department hyperventilating and anxious. She states that she is going to and she feels like she is septic. Patient has a lot of nonspecific complaints and she is unable to be comforted or reasoned with to systematically go through to try to calm her down. Patient does have a significant medical history and justification of imaging and laboratory work is imperative for her care. CBC revealed mild leukocytosis. No anemia. Competence of metabolic panel revealed hypokalemia and she was supplemented with 50 mill colons by mouth. Patient did have head and chest imaging and the results are pending at this time. Differential Diagnosis Differential Diagnosis: Anxiety, dehydration, musculoskeletal strain, hyperventilation syndrome Medical Records Medical records reviewed: Yes I reviewed the patient's medical records Lab Data Lab results reviewed: Yes I reviewed the patient's lab results Labs: Lab Results 01/19/25 01/19/25 Range/Units 01:40 02:44 WBC 11.9 H (4.0-11.0) 10^3/uL RBC 3.49 L (4.20-5.40) 10^6/uL Hgb 12.2 (12.0-16.0) g/dL Hct 35.0 L (36.0-48.0) % MCV 100.3 H (81.0-99.0) fL MCH 35.0 H (26.7-34.0) pg MCHC 34.9 (29.9-35.2) g/dL RDW 14.7 (11.0-15.0) % Plt Count 169 (150-450) 10^3/uL MPV 11.3 (9.5-13.5) fL Neut % (Auto) 81.6 H (43.0-75.0) % Lymph % (Auto) 12.2 L (20.5-60.0) % [place] % (Auto) 5.6 (1.7-12.0) % Eos % (Auto) 0.1 L (0.9-7.0) % Baso % (Auto) 0.2 (0.2-2.0) % Neut # (Auto) 9.7 H (1.4-6.5) 10^3/uL Lymph # (Auto) 1.5 (1.2-3.8) 10^3/uL [place] # (Auto) 0.7 (0.3-0.8) 10^3/uL Eos # (Auto) 0.0 (0.0-0.7) 10^3/uL Baso # (Auto) 0.0 (0.0-0.1) 10^3/uL Abs Immat Gran (auto) 0.04 H (0.00-0.03) 10^3/uL Imm/Tot Granulo (auto) 0.3 (0.0-0.5) % Sodium 133 L (136-145) mmol/L Potassium 3.1 L (3.5-5.1) mmol/L Chloride 100 (98-107) mmol/L Carbon Dioxide 24.4 (21.0-32.0) mmol/L Anion Gap 11.7 BUN 21.0 H (7.0-18.0) mg/dL Creatinine 0.82 (0.55-1.02) mg/dL Est GFR ( Amer) >60 (>=60 mL/min/1.73m^2) Est GFR (Non-Af Amer) >60 (>=60 mL/min/1.73m^2) BUN/Creatinine Ratio 25.6 Glucose 170 H (74-106) mg/dL Lactate 2.0 (0.4-2.0) mmol/L Calcium 8.5 (8.5-10.1) mg/dL Total Bilirubin 0.4 (0.2-1.0) mg/dL AST 19 (15-37) U/L ALT 29 (14-59) U/L Alkaline Phosphatase 91 (46-116) U/L Total Protein 6.8 (6.4-8.2) g/dL Albumin 3.5 (3.4-5.0) g/dL Globulin 3.3 g/dL Albumin/Globulin Ratio 1.1 POC Glucose 166 H (74-106) mg/dL Imaging Data CT scan - head: My impression: Pending at time of disposition Smoking Cessation Time spent discussing smoking cessation with patient: 3 to 10 minutes Patient Acknowledges Need for Cessation: No Additional Comments: Patient currently has a nicotine patch on that she placed prior to coming in. Discharge Plan Discharge Patient Disposition: Still a Patient
[2025-01-19 01:49] LABS: Hematocrit 35.0 % (36.0-48.0); Hemoglobin 12.2 g/dL (12.0-16.0); Immature Granulocytes Abs Auto 0.04 10^3/uL (0.00-0.03); Immature Granulocytes Pct Auto 0.3 % (0.0-0.5); Lymphocytes Absolute Auto 1.5 10^3/uL (1.2-3.8); Mean Corpuscular HGB Conc 34.9 g/dL (29.9-35.2); Mean Corpuscular Hemoglobin 35.0 pg (26.7-34.0); Mean Corpuscular Volume 100.3 fL (81.0-99.0); Platelet Count 169 10^3/uL (150-450); Red Blood Count 3.49 10^6/uL (4.20-5.40); White Blood Count 11.9 10^3/uL (4.0-11.0)
[2025-01-19] MEDS: 0.9 % SODIUM CHLORIDE 1,000 ML 1000 ML IV (01:50)
[2025-01-19 02:09] LABS: Lactate/Lactic Acid 2.0 mmol/L (0.4-2.0)
[2025-01-19 02:16] LABS: Alanine Aminotransferase 29 U/L (14-59); Albumin Globulin Ratio 1.1; Albumin Level 3.5 g/dL (3.4-5.0); Alkaline Phosphatase 91 U/L (46-116); Anion Gap 11.7; Aspartate Amino Transferase 19 U/L (15-37); Blood Urea Nitrogen 21.0 mg/dL (7.0-18.0); Calcium 8.5 mg/dL (8.5-10.1); Carbon Dioxide 24.4 mmol/L (21.0-32.0); Chloride 100 mmol/L (98-107); Estimated GFR (African America >60 (>=60 mL/min/1.73m^2); Estimated GFR (Non-African Ame >60 (>=60 mL/min/1.73m^2); Globulin 3.3 g/dL; Glucose 170 mg/dL (74-106); Potassium 3.1 mmol/L (3.5-5.1); Sodium 133 mmol/L (136-145); Total Protein 6.8 g/dL (6.4-8.2)
[2025-01-19] MEDS: POTASSIUM BICARBONATE/CIT 25 MEQ TABLET EFF 50 MEQ PO (03:16)
[2025-01-19 04:00] VITALS: BP 174/66; PULSE 89; O2SAT 99
[2025-01-19 06:30] VITALS: BP 154/62; PULSE 90; O2SAT 96
--- NOTE | 2025-01-19 08:51 | ED.GENADUL1 ---
HPI HPI - General Adult General Chief complaint: Weakness Stated complaint: WEAKNESS, CONFUSION Time Seen by Provider: 01/19/25 01:06 Source: patient Mode of arrival: walk-in Limitations: no limitations History of Present Illness HPI narrative: 64-year-old female presented to the emergency department and was initially seen by Dr. Ramos and signed out to me after discussing the case with her thoroughly. Please see her full history and physical exam Related Data Allergies Allergy/AdvReac Type Severity Reaction Status Date / Time ciprofloxacin (From Cipro) Allergy Rash Verified 01/19/25 01:05 PFSH PFS Social History Little interest or pleasure in doing things: not at all Feeling down, depressed, or hopeless: not at all Exam Constitutional Vital Signs, click to edit/add: Last Vital Signs Temp 97.9 F 01/19/25 00:58 Pulse 90 01/19/25 06:30 Resp 20 01/19/25 06:30 BP 154/62 H 01/19/25 06:30 Pulse Ox 96 01/19/25 06:30 O2 Del Method Room Air 01/19/25 00:58 Course Course Hospital Course: Patient is a 64-year-old female with numerous medical complaints presenting to the emergency department stating that she has sepsis or an infection. This well-appearing patient will have labs and imaging for her stated complaint only to give her peace of mind. Vital Signs Vital signs: Vital Signs Temperature 97.9 F 01/19/25 00:58 Pulse Rate 100 H 01/19/25 00:58 Respiratory Rate 20 01/19/25 00:58 Blood Pressure 169/77 H 01/19/25 00:58 Pulse Oximetry 98 01/19/25 00:58 Oxygen Delivery Method Room Air 01/19/25 00:58 Temperature 97.9 F 01/19/25 00:58 Pulse Rate 90 01/19/25 06:30 Respiratory Rate 20 01/19/25 06:30 Blood Pressure 154/62 H 01/19/25 06:30 Pulse Oximetry 96 01/19/25 06:30 Oxygen Delivery Method Room Air 01/19/25 00:58 Medical Decision Making MDM Narrative Medical decision making narrative: CT chest shows pulmonary nodule. Potassium was 3.1 and she was given supplementation. Findings are discussed with the patient and she is being discharged home, follow-up with her PCP. Treatment diagnosis and follow-up were discussed with the patient. Lab Data Lab results reviewed: Yes I reviewed the patient's lab results Labs: Lab Results 01/19/25 01/19/25 Range/Units 01:40 02:44 WBC 11.9 H (4.0-11.0) 10^3/uL RBC 3.49 L (4.20-5.40) 10^6/uL Hgb 12.2 (12.0-16.0) g/dL Hct 35.0 L (36.0-48.0) % MCV 100.3 H (81.0-99.0) fL MCH 35.0 H (26.7-34.0) pg MCHC 34.9 (29.9-35.2) g/dL RDW 14.7 (11.0-15.0) % Plt Count 169 (150-450) 10^3/uL MPV 11.3 (9.5-13.5) fL Neut % (Auto) 81.6 H (43.0-75.0) % Lymph % (Auto) 12.2 L (20.5-60.0) % [place] % (Auto) 5.6 (1.7-12.0) % Eos % (Auto) 0.1 L (0.9-7.0) % Baso % (Auto) 0.2 (0.2-2.0) % Neut # (Auto) 9.7 H (1.4-6.5) 10^3/uL Lymph # (Auto) 1.5 (1.2-3.8) 10^3/uL [place] # (Auto) 0.7 (0.3-0.8) 10^3/uL Eos # (Auto) 0.0 (0.0-0.7) 10^3/uL Baso # (Auto) 0.0 (0.0-0.1) 10^3/uL Abs Immat Gran (auto) 0.04 H (0.00-0.03) 10^3/uL Imm/Tot Granulo (auto) 0.3 (0.0-0.5) % Sodium 133 L (136-145) mmol/L Potassium 3.1 L (3.5-5.1) mmol/L Chloride 100 (98-107) mmol/L Carbon Dioxide 24.4 (21.0-32.0) mmol/L Anion Gap 11.7 BUN 21.0 H (7.0-18.0) mg/dL Creatinine 0.82 (0.55-1.02) mg/dL Est GFR ( Amer) >60 (>=60 mL/min/1.73m^2) Est GFR (Non-Af Amer) >60 (>=60 mL/min/1.73m^2) BUN/Creatinine Ratio 25.6 Glucose 170 H (74-106) mg/dL Lactate 2.0 (0.4-2.0) mmol/L Calcium 8.5 (8.5-10.1) mg/dL Total Bilirubin 0.4 (0.2-1.0) mg/dL AST 19 (15-37) U/L ALT 29 (14-59) U/L Alkaline Phosphatase 91 (46-116) U/L Total Protein 6.8 (6.4-8.2) g/dL Albumin 3.5 (3.4-5.0) g/dL Globulin 3.3 g/dL Albumin/Globulin Ratio 1.1 POC Glucose 166 H (74-106) mg/dL Imaging Data CT scan - chest: Radiologist's impression: ITS Impressions Chest CT 01/19/25 01:27 IMPRESSION: No acute findings. No fluid collection is seen within the mastectomy bed or axilla to suggest abscess. 5 mm pulmonary nodule right upper lobe. Given the history of cancer, developing metastatic disease cannot BE excluded. Impression dictated by: Ronald Barros Jr., D.O. 01/19/2025 8:40 AM Dictation Location: [place] Electronically authenticated by: [id number] Y Date: 01/19/2025 08:[address] 01/19/25 01:27 IMPRESSION: NO ACUTE INTRACRANIAL ABNORMALITY. Impression dictated by: Ronald Barros Jr., D.O. 01/19/2025 8:37 AM Dictation Location: [place] Electronically authenticated by: [id number] Y Date: 01/19/2025 08:37 Discharge Plan Discharge Chief Complaint: Weakness Clinical Impression: Dizziness, Acute hypokalemia, Pulmonary nodule Patient Disposition: Home, Self-Care Time of Disposition Decision: 08:51 Condition: Good Mode of Transportation: Private Vehicle Print Language: Mongolian Instructions: Potassium Content of Foods List (ED), Dizziness (ED), Pulmonary Nodules (ED) Additional Instructions: Follow-up with your PCP regarding the pulmonary nodule. Referrals: Physician,Non-Staff, MD [Primary Care Provider] - 1 week
[2025-01-19 08:54] VITALS: BP 151/56; PULSE 78; O2SAT 98
== END 2025-01-19 09:03 | disposition home or self-care (01) ==
PROVIDERS: Emergency Medicine; Emergency Provider Emergency Medicine
DX: R42 Dizziness and giddiness (principal); E87.6 Hypokalemia; R91.8 Other nonspecific abnormal finding of lung field
CPT/HCPCS: 36415; 70450; 71260; 80053; 83605; 85025; 99284; Q9967